=== PATIENT | female | born 1980 ===

== ENCOUNTER 2016-12-14 13:42 | Emergency (ER) | payer OTHER ==
[2016-12-14 13:49] VITALS: BMI 30.5
[2016-12-14 13:50] VITALS: BP 139/86; PULSE 77; RESP 18; TEMP 98.5; O2SAT 100
--- NOTE | 2016-12-14 16:20 | C.PDOC ---
History Of Present Illness 36 yr old female with PMHx of Lupus, presents to the ER stating since last night she had has chest, upper back, bilateral shoulders and bilateral arm pain. Patient states the pain has been increasing and is unrelated to exercise or rest. Patient reports she has tried multiple doses of Tylenol and Motrin with no relief. Patient states she has not taken medication for her Lupus in 2 years and has stopped seeing the food processor. Patient has multiple prior ER visits for various different pain, reports had a US in October which showed a large ovarian cyst along with prior US which also showed a cyst. Also multiple CAT scan of abdomen in past. Patient currently denies fever, nausea, vomiting, diarrhea, headache, weakness or numbness. Time Seen by Provider: 12/14/16 14:15 Chief Complaint (Nursing): Back Pain History Per: Patient History/Exam Limitations: no limitations Onset/Duration Of Symptoms: Sudden Onset (Last night) Past Medical History Reviewed: Historical Data, Nursing Documentation, Vital Signs Vital Signs: Last Vital Signs Temp 98.5 F 12/14/16 13:49 Pulse 77 12/14/16 13:49 Resp 18 12/14/16 13:49 BP 139/86 12/14/16 13:49 Pulse Ox 100 12/14/16 16:27 - Medical History PMH: Arthritis (rheumatoid), Back Problems, Depression, Gastritis, Gastrointestinal Ulcer, Gall Bladder Disease, Hyperthyroidism, Malignancy (Skin Cancer), Rheumatoid Arthritis Surgical History: Cholecystectomy, Endoscopy (EGD with Closed Biopsy) - [facility] Procedures BILAT ENDOS OCC TUBE NEC (11/28/13) DX ULTRASOUND-DIGESTIVE (03/11/13) EPISIOTOMY (02/14/99) ESOPHAGOGASTRODUODENOSCOPY [EGD] W/CLOSED BIOPSY (11/10/14) INJECT/INFUSE ELECTROLYT (05/23/13) INJECT/INFUSE NEC (05/10/15) INSPECTION OF UPPER INTESTINAL TRACT, ENDO (07/05/15) LAPAROSCOPIC CHOLECYSTECTOMY (05/26/13) NEBULIZER THERAPY (06/26/07) OTH NONOPER CARD AND VASC MEASURE (03/31/14) OTHER ENDOSCOPY OF SM INTEST (03/11/13) OTHER LOCAL DESTRUC SKIN (10/05/14) Family History: States: No Known Family Hx - Social History Hx Tobacco Use: No Hx Alcohol Use: Yes Hx Substance Use: No - Immunization History Hx Tetanus Toxoid Vaccination: Yes (2009) Hx Influenza Vaccination: Yes (2015) Hx Pneumococcal Vaccination: Yes (2013) Review Of Systems Except As Marked, All Systems Reviewed And Found Negative. Constitutional: Negative for: Fever Cardiovascular: Positive for: Chest Pain (Upper chest ) Gastrointestinal: Negative for: Nausea, Vomiting Musculoskeletal: Positive for: Shoulder Pain (Bilateral ), Arm Pain (Bilateral ) , Back Pain Neurological: Negative for: Weakness, Numbness Physical Exam - Physical Exam Appears: Non-toxic, In Acute Distress Skin: Warm, Dry, No Rash Head: Atraumatic, Normacephalic Eye(s): bilateral: Normal Inspection, PERRL, EOMI Oral Mucosa: Moist Neck: Normal, Normal ROM, Supple Chest: Symmetrical, No Tenderness Cardiovascular: Rhythm Regular, No Murmur Respiratory: Normal Breath Sounds, No Rales, No Rhonchi, No Stridor, No Wheezing Extremity: Normal ROM, No Swelling Neurological/Psych: Oriented x3, Normal Speech, Normal Motor ED Course And Treatment O2 Sat by Pulse Oximetry: 100 Progress Note: Prior imagings were reviwed. Patient had a normal US, transvaginal and abdomen last month and prior to that month patient had one CAT scan which showed involuted hemorrhagic ovarian cyst but otherwise unremarkable. [facility] was also reviewed which showed multple prescription of percocet from multiple different providers from December of 2015 to last Rx in October of 2016. Medical Decision Making Medical Decision Making: PLAN: * CXR * EKG * CBC * Troponin Discussed pain medicine with pt including her "Aware" records, as well as results of recent testing Pt then eloped Disposition - Disposition Disposition: ELOPEMENT - ER ONLY Disposition Time: 00:00 Condition: UNKNOWN - Clinical Impression Clinical Impression: Chest pain - Scribe Statement The provider has reviewed the documentation as recorded by the Shielae Marylou Diamond Provider Attestation: All medical record entries made by the Jose Carlos were at my direction and personally dictated by me. I have reviewed the chart and agree that the record accurately reflects my personal performance of the history, physical exam, medical decision making, and the department course for this patient. I have also personally directed, reviewed, and agree with the discharge instructions and disposition.
== END 2016-12-14 14:25 | disposition left against medical advice (07) ==
LOC: SUPCPDRO 13:42 → C.ER 13:42
DX: R07.9 Chest pain, unspecified (principal)

== ENCOUNTER 2017-07-30 09:57 | Inpatient (IN) | payer OTHER ==
[2017-07-30 10:02] VITALS: BMI 30.5
[2017-07-30] MEDS ORDERED: Morphine 4 MG/ML VIAL ONE ×3 (10:11→15:01)
--- NOTE | 2017-07-30 10:54 | C.PDOC ---
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 Patient states she bended her knee inwards, heard a snap and fell to the ground. Patient states the pain is 10/10. Denies LOC, head injury, chest pain, neck pain or back pain. Time Seen by Provider: 07/30/17 10:00 Chief Complaint (Nursing): Lower Extremity Problem/Injury History Per: Patient History/Exam Limitations: no limitations Onset/Duration Of Symptoms: Sudden Onset ([employer]) Past Medical History Reviewed: Historical Data, Nursing Documentation, Vital Signs Vital Signs: Last Vital Signs Temp 98.7 F 07/30/17 10:00 Pulse 70 07/30/17 10:58 Resp 20 07/30/17 10:58 BP 137/85 07/30/17 10:58 Pulse Ox 99 07/30/17 14:55 - Medical History PMH: Arthritis (rheumatoid), Back Problems, Depression, Gastritis, Gastrointestinal Ulcer, Gall Bladder Disease, Hyperthyroidism, Malignancy (Skin Cancer), Rheumatoid Arthritis Surgical History: Cholecystectomy, Endoscopy (EGD with Closed Biopsy) - [facility] Procedures BILAT ENDOS OCC TUBE NEC (11/28/13) DX ULTRASOUND-DIGESTIVE (03/11/13) EPISIOTOMY (02/14/99) ESOPHAGOGASTRODUODENOSCOPY [EGD] W/CLOSED BIOPSY (11/10/14) INJECT/INFUSE ELECTROLYT (05/23/13) INJECT/INFUSE NEC (05/10/15) INSPECTION OF UPPER INTESTINAL TRACT, ENDO (07/05/15) LAPAROSCOPIC CHOLECYSTECTOMY (05/26/13) NEBULIZER THERAPY (06/26/07) OTH NONOPER CARD AND VASC MEASURE (03/31/14) OTHER ENDOSCOPY OF SM INTEST (03/11/13) OTHER LOCAL DESTRUC SKIN (10/05/14) Family History: States: No Known Family Hx - Social History Hx Tobacco Use: No Hx Alcohol Use: Yes Hx Substance Use: No - Immunization History Hx Tetanus Toxoid Vaccination: Yes (2009) Hx Influenza Vaccination: Yes (2015) Hx Pneumococcal Vaccination: Yes (2013) Review Of Systems Except As Marked, All Systems Reviewed And Found Negative. Cardiovascular: Negative for: Chest Pain Musculoskeletal: Positive for: Other ((+) Right knee injury and pain.). Negative for: Neck Pain, Back Pain Physical Exam - Physical Exam Appears: Non-toxic, In Acute Distress (Painful distress), Other ((+) Tearful.) Skin: Warm, Dry Head: Atraumatic, Normacephalic Eye(s): bilateral: Normal Inspection, PERRL, EOMI Oral Mucosa: Moist Neck: Normal, Normal ROM, Supple Chest: Symmetrical, No Tenderness Cardiovascular: Rhythm Regular, No Murmur Respiratory: Normal Breath Sounds, No Rales, No Rhonchi, No Stridor, No Wheezing Extremity: No Calf Tenderness, Other (Right Knee - Edema. Clicking sensation to the lateral aspect of the knee.) Neurological/Psych: Oriented x3, Normal Speech, Normal Motor ED Course And Treatment - Laboratory Results Result Diagrams: 07/30/17 15:27 07/30/17 15:27 O2 Sat by Pulse Oximetry: 99 (RA) Pulse Ox Interpretation: Normal - Other Rad X-Ray - Right Knee X-Ray: Viewed By Me, Read By Radiologist Interpretation: PROCEDURE: Right Knee Radiographs. One. HISTORY: fall, surgical knee. COMPARISON: None. FINDINGS: BONES: There is a complete nondisplaced fracture of the lateral tibial plateau with depression of the plateau. There is no other acute fracture identified. There is evidence of old ACL repair with a tunnel through the lateral femur and medial tibia about the knee. JOINTS: No evidence of arthritis. JOINT EFFUSION: There is a hemarthrosis present. OTHER FINDINGS: None. IMPRESSION: Acute depressed complete nondisplaced fracture of the lateral tibial plateau with associated hemarthrosis. - CT Scan/US CT - Lower Extremity Other Rad Studies (CT/US): Read By Radiologist, Radiology Report Reviewed CT/US Interpretation: CT right knee. History: Tibial plateau fracture. Comparison: None available. Technique: Multiple contiguous axial images were performed through the right knee without the use of intravenous contrast. Subsequently, sagittal and coronal reformatted images were obtained. This CT exam was performed using one or more of the following dose reduction techniques : Automated exposure control, adjustment of the mA and/or kV according to patient size, and/or use of iterative reconstruction technique. Findings: Complex comminuted intra-articular fracture deformity seen through the lateral proximal tibial plateau with approximately 1.1 centimeter articular surface depression of the proximal tibia. Fracture extension to the lateral and posterior cortices. Patient status post anterior cruciate ligament graft repair. Lucency noted adjacent to the proximal tibial screw which may represent some screw loosening. Large suprapatellar joint effusion with hemarthrosis. Some heterogeneity and a suggestion of a fat containing foci seen lateral to the proximal tibia. Impression: Complex comminuted intra-articular fracture deformity seen through the lateral proximal tibial plateau with approximately 1.1 centimeter articular surface depression of the proximal tibia. Fracture extension to the lateral and posterior cortices. Patient status post anterior cruciate ligament graft repair. Lucency noted adjacent to the proximal tibial screw which may represent some screw loosening. Large suprapatellar joint effusion with hemarthrosis. Some heterogeneity and a suggestion of a fat containing foci seen lateral to the proximal tibia. Medical Decision Making Medical Decision Making: PLAN: * CT - Lower Extremity * X-Ray - Right Knee * Morphine IM * Spoke with dr. Hernandez, pending call back. Spoke with Dr Hernandez, agreed to admit to medicine, will operate on 08/01. Disposition Discussed With : Kelsea Garcias Counseled Patient/Family Regarding: Studies Performed, Diagnosis, Need For Followup - Disposition Disposition: HOSPITALIZED Disposition Time: 15:59 Condition: IMPROVED Forms: [employer] (Austrian) - Clinical Impression Clinical Impression: Tibial plateau fracture, right - Scribe Statement The provider has reviewed the documentation as recorded by the Jose Carlos Diamond Provider Attestation: All medical record entries made by the Jose Carlos were at my direction and personally dictated by me. I have reviewed the chart and agree that the record accurately reflects my personal performance of the history, physical exam, medical decision making, and the department course for this patient. I have also personally directed, reviewed, and agree with the discharge instructions and disposition. Decision To Admit - Pt Status Changed To: Hospital Disposition Of: Inpatient - Admit Certification Admit to Inpatient:: After my assessment, the patient will require hospitalization for at least two midnights. This is because of the severity of symptoms shown, intensity of services needed, and/or the medical risk in this patient being treated as an outpatient. - InPatient: Physician Admission Certification: I certify that this patient requires 2 or more midnights of care for the following reason:: needs surgery and pain management - . Bed Request Type: Regular Patient Diagnosis: Tibial plateau fracture, right
--- NOTE | 2017-07-30 13:09 | CT ---
CT right knee History: Tibial plateau fracture. Comparison: None available. Technique: Multiple contiguous axial images were performed through the right knee without the use of intravenous contrast. Subsequently, sagittal and coronal reformatted images were obtained. This CT exam was performed using one or more of the following dose reduction techniques: Automated exposure control, adjustment of the mA and/or kV according to patient size, and/or use of iterative reconstruction technique. Findings: Complex comminuted intra-articular fracture deformity seen through the lateral proximal tibial plateau with approximately 1.1 centimeter articular surface depression of the proximal tibia. Fracture extension to the lateral and posterior cortices. Patient status post anterior cruciate ligament graft repair. Lucency noted adjacent to the proximal tibial screw which may represent some screw loosening. Large suprapatellar joint effusion with hemarthrosis. Some heterogeneity and a suggestion of a fat containing foci seen lateral to the proximal tibia. Impression: Complex comminuted intra-articular fracture deformity seen through the lateral proximal tibial plateau with approximately 1.1 centimeter articular surface depression of the proximal tibia. Fracture extension to the lateral and posterior cortices. Patient status post anterior cruciate ligament graft repair. Lucency noted adjacent to the proximal tibial screw which may represent some screw loosening. Large suprapatellar joint effusion with hemarthrosis. Some heterogeneity and a suggestion of a fat containing foci seen lateral to the proximal tibia.
--- NOTE | 2017-07-30 13:28 | CP.PCM.PN ---
Subjective - Date & Time of Evaluation Date of Evaluation: 07/30/17 Time of Evaluation: 09:35 - Subjective Subjective: Rapid Response called at 9:32. 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 Patient has had surgery on this knee recently by a Dr. Andrews, orthopedic surgeon. Patient was screaming in pain when I arrived in the [employer] [facility]. She was sitting on the floor unable to extend her leg. Both pedal pulses were appreciated. Patient's foot was warm and her sensation intact. Patient said "I know it is broken I can feel it." Patient was given a shot of Toradol 30gm IM once in the [facility] and was then brought to the ER. Objective - Vital Signs/Intake and Output Vital Signs (last 24 hours): Temp Pulse Resp BP Pulse Ox 98.7 F 70 20 137/85 99 07/30/17 10:00 07/30/17 10:58 07/30/17 10:58 07/30/17 10:58 07/30/17 12:00
[2017-07-30 15:31] LABS: BASO % 0.4 % (0.0-2.0); EOS # 0.2 K/uL (0.0-0.7); EOS % 1.8 % (0.0-4.0); HEMATOCRIT 37.5 % (34.0-47.0); LYMPH # 2.3 K/uL (1.0-4.3); LYMPH % 24.4 % (20.0-40.0); MEAN CORPUSCULAR HEMOGLOBIN 28.6 pg (27.0-31.0); MEAN CORPUSCULAR HGB CONC 33.3 g/dL (33.0-37.0); MEAN PLATELET VOLUME 8.4 fL (7.2-11.7); MONO # 0.7 K/uL (0.0-0.8); MONO % 7.1 % (0.0-10.0); NRBC % 0.1 % (0.0-2.0); WHITE BLOOD COUNT 9.5 K/uL (4.8-10.8)
[2017-07-30 15:46] LABS: CHLORIDE 101 mmol/L (98-107)
[2017-07-30 15:47] LABS: POTASSIUM 3.7 mmol/L (3.6-5.2); SODIUM 134 mmol/L (132-148)
[2017-07-30 15:49] LABS: GFR AFRICAN-AMERICAN > 60
[2017-07-30 17:22] LABS: ALB/GLOB RATIO 1.4 (1.0-2.1); ALKALINE PHOSPHATASE 68 U/L (38-126); ALT/SGPT 37 U/L (9-52); AST/SGOT 31 U/L (14-36); BILIRUBIN,TOTAL 1.1 mg/dL (0.2-1.3); BLOOD UREA NITROGEN 12 mg/dL (7-17); CALCIUM 8.7 mg/dl (8.6-10.4); CARBON DIOXIDE 23 mmol/L (22-30); GLUCOSE,RANDOM 81 mg/dL (65-105); TOTAL PROTEIN 7.6 g/dL (6.3-8.3)
--- NOTE | 2017-07-30 18:03 | CP.PCM.HP ---
<Yuridia Pinon - Last Filed: 07/30/17 18:41> History of Present Illness - History of Present Illness History of Present Illness: CC: " My knee hurts!" HPI: Patient is a 37 year old female with PMHx of SLE, pericarditis in 2013, colloid brain cyst, L4-5 herniated disc, L5-S1 fissure tear in disc, hyperthyroidism, eczema, rheumatoid arthritis and gastritis with ulcer presenting for severe right knee pain. 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 Patient has had surgery on this knee 3 times , most recently by a Dr. Andrews, orthopedic surgeon. Patient says her pain was a 20/10 on arrival to ER. She says the Toradol did not help at all. Patient says that now her pain is an 8/10. She describes it as a cramping in her thigh and a throbbing, aching, grinding pain in her right knee. Patient says the pain radiates down to her ankle. Patient reports reproducible substernal chest pressure on arrival that resolved with a burp. Patient denies associated SOB or diaphoresis. Patient also reports having a cold since Sunday. Her PMD, Dr. Garcias, prescribed her an antibiotic but told her to only take it if it doesn' t get any better in the next few days. Patient also reports straining with her bowel movements ever since starting Vicodin for back pain. Patient denies fever , chills, abdominal pain, nausea, vomiting, diarrhea, recent travel, sick contacts. Patient reports getting nausea and vomiting from dilaudid. 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 absent: Abdominal Pain, Diarrhea, Nausea, Vomiting - Genitourinary Genitourinary: absent: Dysuria - Musculoskeletal Additional comments: severe right knee pain - Integumentary Integumentary: absent: Bleeding Lesions, Erythema - Neurological Neurological: absent: Dizziness, Headaches - Psychiatric Psychiatric: absent: Anxiety, Depression - Endocrine Endocrine: absent: Fatigue - Hematologic/Lymphatic Hematologic: absent: Easy Bleeding, Easy Bruising Past Patient History - Infectious Disease Hx of Infectious Diseases: None - Tetanus Immunizations Tetanus Immunization: Unknown - Past Medical History & Family History Past Medical History?: Yes Pertinent Family History: Maternal grandmother - pacemaker; maternal grandfather - HTN, RA, stomach CA; Mother - SLE, maternal uncles - DM, paternal grandmother - DM - Past Social History Smoking Status: Never Smoked 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 Alcohol: Occasional Drugs: Denies Home Situation {Lives}: With Family - CARDIAC Hx Cardiac Disorders: Yes Other/Comment: pericarditis secondary to lupus - PULMONARY Hx Respiratory Disorders: No - NEUROLOGICAL Hx Neurological Disorder: Yes Hx Dizziness: Yes Other/Comment: COLLOID CYST BRAIN - HEENT Hx HEENT Problems: No - RENAL Hx Chronic Kidney Disease: No - ENDOCRINE/METABOLIC Hx Hyperthyroidism: Yes - HEMATOLOGICAL/ONCOLOGICAL Hx Blood Disorders: No Hx AIDS: No - INTEGUMENTARY Hx Dermatological Problems: Yes Hx Eczema: Yes - MUSCULOSKELETAL/RHEUMATOLOGICAL Hx Arthritis: Yes (rheumatoid) Hx Rheumatoid Arthritis: Yes - GASTROINTESTINAL Hx Gall Bladder Disease: Yes Hx Gastritis: Yes - GENITOURINARY/GYNECOLOGICAL Hx Genitourinary Disorders: Yes Hx Urinary Tract Infection: Yes - PSYCHIATRIC Hx Depression: Yes Hx Substance Use: No - SURGICAL HISTORY Hx Cholecystectomy: Yes - ANESTHESIA Hx Anesthesia Reactions: (Vomiting) Meds Allergies/Adverse Reactions: Allergies Allergy/AdvReac Type Severity Reaction Status Date / Time latex Allergy RASH Verified 07/30/17 10:01 tramadol Allergy URTICARIA Verified 07/30/17 10:01 Physical Exam - Constitutional Appears: Non-toxic, No Acute Distress - Head Exam Head Exam: NORMAL INSPECTION - Eye Exam Eye Exam: EOMI - ENT Exam ENT Exam: Mucous Membranes Moist - Respiratory Exam Respiratory Exam: Clear to Auscultation Bilateral, NORMAL BREATHING PATTERN. absent: Rales, Rhonchi, Wheezes - Cardiovascular Exam Cardiovascular Exam: REGULAR RHYTHM, +S1, +S2. absent: Gallop, Irregular Rhythm , Rubs, Systolic Murmur - GI/Abdominal Exam GI & Abdominal Exam: Normal Bowel Sounds, Soft. absent: Distended, Firm, Guarding, Rigid, Tenderness - Extremities Exam Extremities exam: Positive for: pedal pulses present. Negative for: pedal edema Additional comments: right knee tender with palpable suprapatellar effusion unable to extend right knee patient can dorsilfex and plantar flex her right and left ankles - Neurological Exam Neurological exam: Alert, Oriented x3 - Psychiatric Exam Psychiatric exam: Normal Affect, Normal Mood - Skin Skin Exam: Dry, Normal Color Results - Vital Signs Recent Vital Signs: Last Vital Signs Temp 99 F 07/30/17 17:11 Pulse 74 07/30/17 17:11 Resp 20 07/30/17 17:11 BP 126/77 07/30/17 17:11 Pulse Ox 100 07/30/17 17:11 - Labs Result Diagrams: 07/30/17 15:27 07/30/17 15:27 Labs: Laboratory Results - last 24 hr 07/30/17 07/30/17 15:27 15:27 WBC 9.5 RBC 4.35 Hgb 12.5 Hct 37.5 MCV 86.0 MCH 28.6 MCHC 33.3 RDW 13.0 Plt Count 237 MPV 8.4 Neut % (Auto) 66.3 Lymph % (Auto) 24.4 [place] % (Auto) 7.1 Eos % (Auto) 1.8 Baso % (Auto) 0.4 Neut # 6.3 Lymph # 2.3 [place] # 0.7 Eos # 0.2 Baso # 0.0 Sodium 134 Potassium 3.7 Chloride 101 Carbon Dioxide 23 Anion Gap 14 BUN 12 Creatinine 0.6 L Est GFR ( Amer) > 60 Est GFR (Non-Af Amer) > 60 Random Glucose 81 Calcium 8.7 Total Bilirubin 1.1 AST 31 ALT 37 Alkaline Phosphatase 68 Total Protein 7.6 Albumin 4.4 Globulin 3.2 Albumin/Globulin Ratio 1.4 Assessment & Plan - Assessment and Plan (Free Text) Assessment: Right Tibial Fracture Right Knee X Ray 07/30/17 - acute depressed complete nondisplaced fracture of the lateral tibial plateau with associated hemarthrosis (please see full report) Right Knee CT 07/30/17 - complex comminuted intra-articular fracture deformity seen through the lateral proximal tibial plateau with approximately 1.1cm articular surface depression of the proximal tibia. Fracture extension to the lateral and posterior cortices. Patient status post ACL graft repair. Lucency noted adjacent to the proximal tibial screw which may represent some screw loosening. Large suprapatellar joint effusion with hemarthrosis. Some heterogeneity and a suggestion of a fat containing foci seen lateral to proximal tibia (please see full report) Ortho consult - Dr. Hernandez - help appreciated Patient NPO starting Midnight between 07/31 to 08/01 for surgery on 08/01/17 Morphine 4mg IVP Q4H PRN severe pain Zofran 4mg IVP Q6 PRN nausea/vomiting Constipation Colace 100mg PO BID History of Herniated discs Continue home vicodin 5-300mg History of hyperthyroidism Last TSH on 06/22/17 was 0.47 - WNL History of SLE Patient used to take plaquinil but it gave her migraines and tinnitus She and her doctor decided to stop it History of brain colloid cyst First diagnosed 2010 Patient follows up outpatient with Dr. Max and gets an MRI every 3 years History of gastritis Protonix 40mg PO daily Prophylaxis Heparin 5000U SC Q8 Protonix 40mg PO daily <Helder Krueger - Last Filed: 07/31/17 09:05> Results - Vital Signs Recent Vital Signs: Last Vital Signs Temp 98.4 F 07/31/17 07:00 Pulse 70 07/31/17 07:00 Resp 20 07/31/17 07:00 BP 128/82 07/31/17 07:00 Pulse Ox 99 07/31/17 07:00 - Labs Result Diagrams: 07/31/17 07:21 07/31/17 07:21 Labs: Laboratory Results - last 24 hr 07/30/17 07/30/17 07/31/17 15:27 15:27 07:21 WBC 9.5 5.7 RBC 4.35 4.03 Hgb 12.5 11.9 Hct 37.5 34.8 MCV 86.0 86.3 MCH 28.6 29.6 MCHC 33.3 34.3 RDW 13.0 12.9 Plt Count 237 213 MPV 8.4 8.3 Neut % (Auto) 66.3 52.9 Lymph % (Auto) 24.4 34.0 [place] % (Auto) 7.1 9.3 Eos % (Auto) 1.8 3.3 Baso % (Auto) 0.4 0.5 Neut # 6.3 3.0 Lymph # 2.3 1.9 [place] # 0.7 0.5 Eos # 0.2 0.2 Baso # 0.0 0.0 Sodium 134 Potassium 3.7 Chloride 101 Carbon Dioxide 23 Anion Gap 14 BUN 12 Creatinine 0.6 L Est GFR ( Amer) > 60 Est GFR (Non-Af Amer) > 60 Random Glucose 81 Calcium 8.7 Total Bilirubin 1.1 AST 31 ALT 37 Alkaline Phosphatase 68 Total Protein 7.6 Albumin 4.4 Globulin 3.2 Albumin/Globulin Ratio 1.4 07/31/17 07:21 WBC RBC Hgb Hct MCV MCH MCHC RDW Plt Count MPV Neut % (Auto) Lymph % (Auto) [place] % (Auto) Eos % (Auto) Baso % (Auto) Neut # Lymph # [place] # Eos # Baso # Sodium 133 Potassium 3.6 Chloride 99 Carbon Dioxide 25 Anion Gap 13 BUN 12 Creatinine 0.6 L Est GFR ( Amer) > 60 Est GFR (Non-Af Amer) > 60 Random Glucose 77 Calcium 8.2 L Total Bilirubin 1.5 H AST 23 ALT 32 Alkaline Phosphatase 62 Total Protein 6.6 Albumin 3.9 Globulin 2.7 Albumin/Globulin Ratio 1.5 Attending/Attestation - Attestation I have personally seen and examined this patient.: Yes I have fully participated in the care of the patient.: Yes I have reviewed all pertinent clinical information: Yes Notes (Text): 07/31/17 09:00 Medical Attending: Patient was seen and examined by me in the ER Fast track. Agree with the above note by the medical manager. 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 Initially it was very painful, now better controlled with morphine and we also added on percocet as well. She explains to us that she's had several procedures to that side as well. By the time I saw patient in the ER fast track she already was in a soft splint, bonifacio wrap There is a history of hyperthyroid - a recent TSH was ok, also history of lupus that has been stable. Will need CXRAY, EKG. Coags, Type screen thank you Helder Krueger
[2017-07-30] MEDS: Pantoprazole 40 mg EC Tab PO SCH (18:29)
[2017-07-30] MEDS: Hydrocodone/Acetaminophen 5 mg /300 mg Tab PO PRN (18:36)
[2017-07-31] MEDS: Hydrocodone/Acetaminophen 5 mg /300 mg Tab PO PRN ×4 (02:03→22:40)
[2017-07-31 07:47] LABS: BASO % 0.5 % (0.0-2.0); EOS # 0.2 K/uL (0.0-0.7); EOS % 3.3 % (0.0-4.0); HEMATOCRIT 34.8 % (34.0-47.0); LYMPH # 1.9 K/uL (1.0-4.3); MEAN CELL VOLUME 86.3 fL (81.0-99.0); MEAN CORPUSCULAR HEMOGLOBIN 29.6 pg (27.0-31.0); MEAN CORPUSCULAR HGB CONC 34.3 g/dL (33.0-37.0); MEAN PLATELET VOLUME 8.3 fL (7.2-11.7); MONO # 0.5 K/uL (0.0-0.8); MONO % 9.3 % (0.0-10.0); NRBC % 0.2 % (0.0-2.0); RED CELL DISTRIBUTION WIDTH 12.9 % (11.5-14.5); WHITE BLOOD COUNT 5.7 K/uL (4.8-10.8)
[2017-07-31 07:57] LABS: CHLORIDE 99 mmol/L (98-107); POTASSIUM 3.6 mmol/L (3.6-5.2); SODIUM 133 mmol/L (132-148)
[2017-07-31 07:59] LABS: ALB/GLOB RATIO 1.5 (1.0-2.1); ALKALINE PHOSPHATASE 62 U/L (38-126); AST/SGOT 23 U/L (14-36); BILIRUBIN,TOTAL 1.5 mg/dL (0.2-1.3); CARBON DIOXIDE 25 mmol/L (22-30); GFR AFRICAN-AMERICAN > 60; TOTAL PROTEIN 6.6 g/dL (6.3-8.3)
[2017-07-31 08:00] LABS: ALT/SGPT 32 U/L (9-52); BLOOD UREA NITROGEN 12 mg/dL (7-17); CALCIUM 8.2 mg/dl (8.6-10.4); GLUCOSE,RANDOM 77 mg/dL (65-105)
[2017-07-31] MEDS: Pantoprazole 40 mg EC Tab PO SCH (09:25)
[2017-07-31] MEDS: HYDROmorphone 1 mg/ml ISec IVP PRN ×2 (12:01→16:33)
--- NOTE | 2017-07-31 14:02 | RAD ---
HISTORY: medical pre-op clearance COMPARISON: 10/01/2014 FINDINGS: LUNGS: No active pulmonary disease. PLEURA: No significant pleural effusion identified, no pneumothorax apparent. CARDIOVASCULAR: Normal. OSSEOUS STRUCTURES: No significant abnormalities. VISUALIZED UPPER ABDOMEN: Normal. OTHER FINDINGS: None. IMPRESSION: No active disease. No significant interval change compared to the prior examination(s).
[2017-07-31 14:34] LABS: INR 1.1
--- NOTE | 2017-07-31 16:00 | CP.PCM.PN ---
<Yuridia Sousa - Last Filed: 07/31/17 15:56> Subjective - Date & Time of Evaluation Date of Evaluation: 07/31/17 Time of Evaluation: 09:15 - Subjective Subjective: Medicine note for Dr. Krueger Patient seen and examined at bedside. Patient Resting in bed complaining of RLE pain. Patient says she is having pain in the lateral aspect of her calf down to her ankle and her foot feels cold to her. Patient feels that the morphine is not controlling her pain and is requesting dilaudid instead with zofran to prevent nausea. Patient says she is also constipated and has not had a BM in a couple days. Patient says her right shoulder is feeling sore and she is also having epigastric pain radiating up into her chest. Patient says this pain is relieved by sitting up or turning on her side. She admits to a history of GERD. She denies fever, chills, SOB, n/v/d. Objective - Vital Signs/Intake and Output Vital Signs (last 24 hours): Temp Pulse Resp BP Pulse Ox 98.2 F 71 20 111/68 97 07/31/17 15:10 07/31/17 15:10 07/31/17 15:10 07/31/17 15:10 07/31/17 15:10 Intake and Output: 07/31/17 07/31/17 06:59 18:59 Intake Total 500 Balance 500 - Medications Medications: Current Medications Acetaminophen/Hydrocodone Bitart (Vicodin 5 Mg-300 Mg) 1 tab PO Q4H PRN PRN Reason: Pain, moderate (4-7) Stop: 08/06/17 17:37 Last Admin: 07/31/17 14:57 Dose: 1 tab Docusate Sodium (Colace) 100 mg PO BID [facility] Last Admin: 07/31/17 09:25 Dose: 100 mg Heparin Sodium (Porcine) (Heparin) 5,000 units SC Q8 [facility] Last Admin: 07/31/17 14:06 Dose: 5,000 units Hydromorphone HCl (Dilaudid) 1 mg IVP Q4H PRN PRN Reason: Pain, severe (8-10) Last Admin: 07/31/17 12:01 Dose: 1 mg Ondansetron HCl (Zofran Inj) 4 mg IVP Q6 PRN PRN Reason: Nausea/Vomiting Last Admin: 07/31/17 12:01 Dose: 4 mg Pantoprazole Sodium (Protonix Ec Tab) 40 mg PO DAILY [facility] Last Admin: 07/31/17 09:25 Dose: 40 mg - Labs Labs: 07/31/17 07:21 07/31/17 07:21 PT 12.8 SECONDS (9.7-12.2) H 07/31/17 14:09 INR 1.1 07/31/17 14:09 - Additional Findings Additional findings: - Constitutional Appears: Non-toxic, No Acute Distress - Head Exam Head Exam: NORMAL INSPECTION - Eye Exam Eye Exam: EOMI - ENT Exam ENT Exam: Mucous Membranes Moist - Respiratory Exam Respiratory Exam: Clear to Auscultation Bilateral, NORMAL BREATHING PATTERN. absent: Rales, Rhonchi, Wheezes - Cardiovascular Exam Cardiovascular Exam: REGULAR RHYTHM, +S1, +S2. absent: Gallop, Irregular Rhythm , Rubs, Systolic Murmur - GI/Abdominal Exam GI & Abdominal Exam: Normal Bowel Sounds, Soft. absent: Distended, Firm, Guarding, Rigid, Tenderness - Extremities Exam Extremities exam: Positive for: pedal pulses present. Negative for: pedal edema Additional comments: Full ROM in toes right LE in MIRIAM bandage and brace - Neurological Exam Neurological exam: Alert, Oriented x3 Additional comments: no sensory deficit in toes - Psychiatric Exam Psychiatric exam: Normal Affect, Normal Mood - Skin Skin Exam: Dry, Normal Color Assessment and Plan - Assessment and Plan (Free Text) Plan: Right Tibial Fracture Right Knee X Ray 07/30/17 - acute depressed complete nondisplaced fracture of the lateral tibial plateau with associated hemarthrosis (please see full report) Right Knee CT 07/30/17 - complex comminuted intra-articular fracture deformity seen through the lateral proximal tibial plateau with approximately 1.1cm articular surface depression of the proximal tibia. Fracture extension to the lateral and posterior cortices. Patient status post ACL graft repair. Lucency noted adjacent to the proximal tibial screw which may represent some screw loosening. Large suprapatellar joint effusion with hemarthrosis. Some heterogeneity and a suggestion of a fat containing foci seen lateral to proximal tibia (please see full report) Ortho consult - Dr. Hernandez - help appreciated * Patient NPO starting Midnight for surgery on 08/01/17 * INR 1.1 * CXR: No active disease. No significant interval change compared to the prior examination(s). * F/U EKG * Blood type: A+ * Ab screen: negative Dilaudid 1 mg Q4H PRN severe pain Discontinued Morphine 4mg IVP Q4H PRN severe pain Zofran 4mg IVP Q6 PRN nausea/vomiting Constipation Colace 100mg PO BID History of Herniated discs Continue home vicodin 5-300mg History of hyperthyroidism Last TSH on 06/22/17 was 0.47 - WNL History of SLE Patient used to take plaquinil but it gave her migraines and tinnitus She and her doctor decided to stop it History of brain colloid cyst First diagnosed 2010 Patient follows up outpatient with Dr. Max and gets an MRI every 3 years History of gastritis Protonix 40mg PO daily Prophylaxis Heparin 5000U SC Q8 Protonix 40mg PO daily <Helder Krueger - Last Filed: 07/31/17 16:16> Objective - Vital Signs/Intake and Output Vital Signs (last 24 hours): Temp Pulse Resp BP Pulse Ox 98.2 F 71 20 111/68 97 07/31/17 15:10 07/31/17 15:10 07/31/17 15:10 07/31/17 15:10 07/31/17 15:10 Intake and Output: 07/31/17 07/31/17 06:59 18:59 Intake Total 500 Balance 500 - Medications Medications: Current Medications Acetaminophen/Hydrocodone Bitart (Vicodin 5 Mg-300 Mg) 1 tab PO Q4H PRN PRN Reason: Pain, moderate (4-7) Stop: 08/06/17 17:37 Last Admin: 07/31/17 14:57 Dose: 1 tab Docusate Sodium (Colace) 100 mg PO BID [facility] Last Admin: 07/31/17 09:25 Dose: 100 mg Heparin Sodium (Porcine) (Heparin) 5,000 units SC Q8 [facility] Last Admin: 07/31/17 14:06 Dose: 5,000 units Hydromorphone HCl (Dilaudid) 1 mg IVP Q4H PRN PRN Reason: Pain, severe (8-10) Last Admin: 07/31/17 12:01 Dose: 1 mg Ondansetron HCl (Zofran Inj) 4 mg IVP Q6 PRN PRN Reason: Nausea/Vomiting Last Admin: 07/31/17 12:01 Dose: 4 mg Pantoprazole Sodium (Protonix Ec Tab) 40 mg PO DAILY [facility] Last Admin: 07/31/17 09:25 Dose: 40 mg - Labs Labs: 07/31/17 07:21 07/31/17 07:21 PT 12.8 SECONDS (9.7-12.2) H 07/31/17 14:09 INR 1.1 07/31/17 14:09 Attending/Attestation - Attestation I have personally seen and examined this patient.: Yes I have fully participated in the care of the patient.: Yes I have reviewed all pertinent clinical information, including history, physical exam and plan: Yes Notes (Text): 07/31/17 16:16 Medical attending: Patient was seen and examined by me, agrees the above note by medical pathologist. The IV morphine that the patient was receiving was not enough and so was changed over to IV Dilaudid. We continue with oral Vicodin as well. The was able to move her toes, she denied any numbness or paresthesias. On exam she was able to plantar and dorsiflex her foot. The patient will be nothing by mouth after midnight, for anticipation of surgery of the right tibial fracture thank you Helder Krueger
[2017-08-01] MEDS: HYDROmorphone 1 mg/ml ISec IVP PRN ×4 (00:30→20:09)
[2017-08-01 06:58] LABS: BASO % 0.3 % (0.0-2.0); EOS # 0.2 K/uL (0.0-0.7); EOS % 3.3 % (0.0-4.0); HEMATOCRIT 35.1 % (34.0-47.0); LYMPH # 2.2 K/uL (1.0-4.3); LYMPH % 32.1 % (20.0-40.0); MEAN CELL VOLUME 85.4 fL (81.0-99.0); MEAN CORPUSCULAR HEMOGLOBIN 29.5 pg (27.0-31.0); MEAN CORPUSCULAR HGB CONC 34.6 g/dL (33.0-37.0); MEAN PLATELET VOLUME 8.4 fL (7.2-11.7); MONO # 0.6 K/uL (0.0-0.8); MONO % 8.5 % (0.0-10.0); RED CELL DISTRIBUTION WIDTH 12.6 % (11.5-14.5); WHITE BLOOD COUNT 6.8 K/uL (4.8-10.8)
[2017-08-01 07:22] LABS: INR 1.1
[2017-08-01 07:40] LABS: ALB/GLOB RATIO 1.3 (1.0-2.1); ALKALINE PHOSPHATASE 70 U/L (38-126); ALT/SGPT 34 U/L (9-52); AST/SGOT 26 U/L (14-36); BILIRUBIN,TOTAL 1.2 mg/dL (0.2-1.3); BLOOD UREA NITROGEN 10 mg/dL (7-17); CALCIUM 8.6 mg/dl (8.6-10.4); CARBON DIOXIDE 25 mmol/L (22-30); CHLORIDE 99 mmol/L (98-107); GFR AFRICAN-AMERICAN > 60; GLUCOSE,RANDOM 84 mg/dL (65-105); MAGNESIUM 1.8 mg/dL (1.6-2.3); PHOSPHOROUS 3.9 mg/dL (2.5-4.5); POTASSIUM 3.8 mmol/L (3.6-5.2); SODIUM 134 mmol/L (132-148)
[2017-08-01 08:28] LABS: RBC URINE 4 /hpf (0-3); URINE BILIRUBIN NEGATIVE (NEGATIVE); URINE BLOOD 1+ (NEGATIVE); URINE COLOR Yellow (YELLOW); URINE GLUCOSE (UA) NORMAL (Normal); URINE KETONE NEGATIVE (NEGATIVE); URINE LEUKOCYTE ESTERASE TRACE Leu/uL (Negative); URINE PROTEIN NEGATIVE (NEGATIVE); URINE UROBILINOGEN NORMAL mg/dL (0.2-1.0); WBC URINE 5 /hpf (0-5)
[2017-08-01] MEDS: Pantoprazole 40 mg EC Tab PO SCH (09:34)
[2017-08-01] MEDS ORDERED: Influenza Vaccine 60 mcg/0.5 mL SYR (4YR UP) IM ONE (10:00)
--- NOTE | 2017-08-01 10:07 | CP.PCM.PN ---
Subjective - Date & Time of Evaluation Date of Evaluation: 08/01/17 Time of Evaluation: 07:20 - Subjective Subjective: Medicine note for Dr. Krueger Patient seen and examined at bedside. Patient resting comfortably in bed but saying she is nervous about her upcoming surgery since Dr. Hernandez told her it may need to be 2 separate surgeries. Patient says her pain is better controlled today than it was yesterday. She admits to not having a BM for 2 days and is worried she may have a hard time using the bathroom post op. Patient is also requesting female nurses only to assist her with toileting. Patient is still complaining of some gastric reflux and RLE pain but othrewise denies fever, chills, SOB, n/v/d. Objective - Vital Signs/Intake and Output Vital Signs (last 24 hours): Temp Pulse Resp BP Pulse Ox 98.4 F 100 H 18 130/70 98 08/01/17 07:40 08/01/17 07:40 08/01/17 07:40 08/01/17 07:40 08/01/17 07:40 - Medications Medications: Current Medications Acetaminophen/Hydrocodone Bitart (Vicodin 5 Mg-300 Mg) 1 tab PO Q4H PRN PRN Reason: Pain, moderate (4-7) Stop: 08/06/17 17:37 Last Admin: 07/31/17 22:40 Dose: 1 tab Docusate Sodium (Colace) 100 mg PO BID [facility] Last Admin: 08/01/17 09:33 Dose: Not Given Heparin Sodium (Porcine) (Heparin) 5,000 units SC Q8 [facility] Last Admin: 07/31/17 21:54 Dose: 5,000 units Hydromorphone HCl (Dilaudid) 1 mg IVP Q4H PRN PRN Reason: Pain, severe (8-10) Last Admin: 08/01/17 09:26 Dose: 1 mg Ondansetron HCl (Zofran Inj) 4 mg IVP Q6 PRN PRN Reason: Nausea/Vomiting Last Admin: 08/01/17 05:34 Dose: 4 mg Pantoprazole Sodium (Protonix Ec Tab) 40 mg PO DAILY [facility] Last Admin: 08/01/17 09:34 Dose: Not Given - Labs Labs: 08/01/17 06:47 08/01/17 06:47 PT 12.6 SECONDS (9.7-12.2) H 08/01/17 06:47 INR 1.1 08/01/17 06:47 APTT 32 SECONDS (21-34) 08/01/17 06:47 - Additional Findings Additional findings: - Constitutional Appears: Non-toxic, No Acute Distress - Head Exam Head Exam: NORMAL INSPECTION - Eye Exam Eye Exam: EOMI - ENT Exam ENT Exam: Mucous Membranes Moist - Respiratory Exam Respiratory Exam: Clear to Auscultation Bilateral, NORMAL BREATHING PATTERN. absent: Rales, Rhonchi, Wheezes - Cardiovascular Exam Cardiovascular Exam: REGULAR RHYTHM, +S1, +S2. absent: Gallop, Irregular Rhythm , Rubs, Systolic Murmur - GI/Abdominal Exam GI & Abdominal Exam: Normal Bowel Sounds, Soft. absent: Distended, Firm, Guarding, Rigid, Tenderness - Extremities Exam Extremities exam: Positive for: pedal pulses present. Negative for: pedal edema Additional comments: Full ROM in toes right LE in MIRIAM bandage and brace - Neurological Exam Neurological exam: Alert, Oriented x3 Additional comments: no sensory deficit in toes - Psychiatric Exam Psychiatric exam: Normal Affect, Normal Mood - Skin Skin Exam: Dry, Normal Color Assessment and Plan - Assessment and Plan (Free Text) Plan: Right Tibial Fracture Right Knee X Ray 07/30/17 - acute depressed complete nondisplaced fracture of the lateral tibial plateau with associated hemarthrosis (please see full report) Right Knee CT 07/30/17 - complex comminuted intra-articular fracture deformity seen through the lateral proximal tibial plateau with approximately 1.1cm articular surface depression of the proximal tibia. Fracture extension to the lateral and posterior cortices. Patient status post ACL graft repair. Lucency noted adjacent to the proximal tibial screw which may represent some screw loosening. Large suprapatellar joint effusion with hemarthrosis. Some heterogeneity and a suggestion of a fat containing foci seen lateral to proximal tibia (please see full report) Ortho consult - Dr. Hernandez - help appreciated * Surgery for fracture on 08/01/17 * Will need incentive spirometer at bedside post op * INR 1.1 * CXR: No active disease. No significant interval change compared to the prior examination(s) * F/U RLE MRI * Patient may need 2nd surgery for ACL repair * EKG: possible mild LVH, otherwise NSR and WNL * Blood type: A+ * Ab screen: negative Dilaudid 1 mg Q4H PRN severe pain Discontinued Morphine 4mg IVP Q4H PRN severe pain Zofran 4mg IVP Q6 PRN nausea/vomiting Constipation Colace 100mg PO BID History of Herniated discs Continue home vicodin 5-300mg History of hyperthyroidism Last TSH on 06/22/17 was 0.47 - WNL History of SLE Patient used to take plaquinil but it gave her migraines and tinnitus She and her doctor decided to stop it History of brain colloid cyst First diagnosed 2010 Patient follows up outpatient with Dr. Max and gets an MRI every 3 years History of gastritis Protonix 40mg PO daily Prophylaxis Heparin 5000U SC Q8 Protonix 40mg PO daily
[2017-08-01] MEDS ORDERED: Midazolam 2 MG/2 ML VIAL ONE (14:30)
[2017-08-01] MEDS ORDERED: Propofol 10 mg/ml Inj (20 ML) ONE (14:30)
[2017-08-01] MEDS ORDERED: ceFAZolin IV 1 gm in Dextrose 2 GM/100 ML BAG IVPB ONE (14:32)
[2017-08-01] MEDS ORDERED: Bacitracin Ointment 30 GM TUBE ONE (14:32)
[2017-08-01] MEDS ORDERED: Bupivacaine 0.5% Inj(30mL) ONE (14:33)
[2017-08-01] MEDS ORDERED: Gentamicin 80 mg in 0.9% NS 0 MG/0 ML BAG IVPB ONE (14:33)
[2017-08-01] MEDS ORDERED: Lactated Ringer's 1,000 ML IV ONE ×2 (14:40→17:25)
--- NOTE | 2017-08-01 15:58 | MRI ---
MRI right knee History: Knee pain. Comparison: None available. Technique: Multi-echo multiplanar sequences were performed through the right knee without the use of intravenous contrast. Findings: Prominent comminuted depressed intra-articular fracture of the lateral proximal tibial plateau with articular surface depression measuring up to 1.1 centimeters. Fracture line extension to the lateral cortex of the proximal tibia to the level of the metadiaphysis. Status post anterior cruciate ligament graft repair. Some thinning and fraying with increased signal seen at the distal attachment of the graft best seen on series 5, image 12 suggestive for a moderate grade sprain and or mild partial tearing. Majority of the tendon strand fibers appear preserved on the coronal sequences. Low-grade sprain of the proximal attachment of the posterior cruciate ligament. Linear grade 1 intrasubstance degeneration in the posterior horn of the medial meniscus. Vertically-oriented increased signal seen within the anterior root and horn of the lateral meniscus extending to the superior articular surface best seen on series 5, images 9 and 10 suggestive for a tear. Medial collateral ligament is preserved. Some fraying with increased signal seen within the distal attachment of the fibular collateral ligament as well as the biceps femoris tendon attachment best seen on series 7, image 9 as well as series 3 images 18 and 19 suggestive for high grade strains and or partial tearing which raises the concern for possible posterior-lateral corner injury. Fluid and edema at the level of the posterior lateral corner. Quadriceps tendon is preserved. Patellar tendon is preserved. Prominent thickening and fluid surrounding the lateral patellar retinaculum suggestive for high grade strain and or partial tearing. Medial patellar retinaculum is preserved. Patellar cartilage is preserved. Prominent cartilage loss involving the lateral proximal tibia at the level of the fracture site. Large suprapatellar joint effusion. Impression: 1. Prominent comminuted depressed intra-articular fracture of the lateral proximal tibial plateau with articular surface depression measuring up to 1.1 centimeters. Fracture line extension to the lateral cortex of the proximal tibia to the level of the metadiaphysis. Prominent cartilage loss involving the lateral proximal tibia at the level of the fracture site. 2. Large suprapatellar joint effusion. 3. Vertically-oriented increased signal seen within the anterior root and horn of the lateral meniscus extending to the superior articular surface best seen on series 5, images 9 and 10 suggestive for a tear. 4. Some fraying with increased signal seen within the distal attachment of the fibular collateral ligament as well as the biceps femoris tendon attachment best seen on series 7, image 9 as well as series 3 images 18 and 19 suggestive for high grade strains and or partial tearing which raises the concern for possible posterior-lateral corner injury. Fluid and edema at the level of the posterior lateral corner. 5. Status post anterior cruciate ligament graft repair. Some thinning and fraying with increased signal seen at the distal attachment of the graft best seen on series 5, image 12 suggestive for a moderate grade sprain and or mild partial tearing. Majority of the tendon strand fibers appear preserved on the coronal sequences. 6. Low-grade sprain of the proximal attachment of the posterior cruciate ligament. 7. Linear grade 1 intrasubstance degeneration in the posterior horn of the medial meniscus. 8. Prominent thickening and fluid surrounding the lateral patellar retinaculum suggestive for high grade strain and or partial tearing.
--- NOTE | 2017-08-01 17:14 | CARD ---
APPROVED REPORT EKG Measurement Heart [id number] <Conclusion> Normal sinus rhythm Moderate voltage criteria for LVH, may be normal variant Borderline ECG
[2017-08-01] MEDS ORDERED: Neostigmine Methylsulfate 3mg/3ml Syringe IV ONE (17:33)
[2017-08-01] MEDS ORDERED: Morphine 4 MG/ML VIAL ONE ×2 (17:41→18:07)
[2017-08-01] MEDS ORDERED: Bupivacaine HCl 0.25% PF (10 ml) Inj ONE (17:49)
--- NOTE | 2017-08-01 17:54 | PCM.SURG1 ---
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 rupture arcutae ligament complex/posterolateral corner. peripheral separation lateral meniscus Operative Findings: as above Post-Operative Diagnosis: as above Operation Performed: ORIF comminuted/depressed tibial plateau fx (Right)- with lateral tibial plateau plate. primary repair posterol;ateral cornerextraartiuclar). reinforcemtn/augmentation of repair with internal brace technology. primary repair peripheral separation lateral meniscus. positioning of fluoro/interpretation of video images Specimen/Specimens Removed: fx callous/hematoma Estimated Blood Loss: EBL {In ML}: 55 Blood Products Given: N/A Drains Used: No Drains Post-Op Condition: Good Date of Surgery/Procedure: 08/01/17 Time of Surgery/Procedure: 15:40 (time in room/anesthesia induction time 1440)
[2017-08-01] MEDS ORDERED: ceFAZolin 1 gm FROZEN Premix 1 GM/50 ML ML IVPB SCH (18:00)
[2017-08-01] MEDS ORDERED: HYDROmorphone 1 mg/ml ISec IVP ONE (18:30)
[2017-08-01] MEDS: HYDROmorphone 0.5 mg/0.5 ml ISec IVP PRN ×2 (18:31→18:58)
[2017-08-01] MEDS: ceFAZolin IV 1 gm in Dextrose 1 GM/50 ML BAG IVPB SCH (20:12)
[2017-08-02] MEDS: HYDROmorphone 1 mg/ml ISec IVP PRN ×8 (00:05→23:53)
[2017-08-02] MEDS: ceFAZolin IV 1 gm in Dextrose 1 GM/50 ML BAG IVPB SCH ×3 (02:03→17:38)
[2017-08-02] MEDS: Hydrocodone/Acetaminophen 5 mg /300 mg Tab PO PRN ×2 (02:04→06:18)
[2017-08-02] MEDS ORDERED: Aluminum Hydroxide/Magnesium Hydroxide Susp (30 mL) PO ONE (04:01)
[2017-08-02 07:35] LABS: EOS % 0.1 % (0.0-4.0); HEMATOCRIT 35.2 % (34.0-47.0); LYMPH # 0.9 K/uL (1.0-4.3); LYMPH % 8.3 % (20.0-40.0); MEAN CORPUSCULAR HEMOGLOBIN 28.8 pg (27.0-31.0); MEAN CORPUSCULAR HGB CONC 33.8 g/dL (33.0-37.0); MEAN PLATELET VOLUME 8.3 fL (7.2-11.7); MONO # 0.9 K/uL (0.0-0.8); MONO % 7.8 % (0.0-10.0); PLATELET COUNT 246 K/uL (130-400); RED CELL DISTRIBUTION WIDTH 12.9 % (11.5-14.5)
[2017-08-02 07:41] LABS: WHITE BLOOD COUNT 11.3 K/uL (4.8-10.8)
[2017-08-02 08:05] LABS: ALB/GLOB RATIO 1.3 (1.0-2.1); ALKALINE PHOSPHATASE 66 U/L (38-126); ALT/SGPT 34 U/L (9-52); AST/SGOT 29 U/L (14-36); BILIRUBIN,TOTAL 1.1 mg/dL (0.2-1.3); BLOOD UREA NITROGEN 9 mg/dL (7-17); CALCIUM 8.7 mg/dl (8.6-10.4); CARBON DIOXIDE 26 mmol/L (22-30); CHLORIDE 97 mmol/L (98-107); GFR AFRICAN-AMERICAN > 60; GLUCOSE,RANDOM 97 mg/dL (65-105); MAGNESIUM 1.8 mg/dL (1.6-2.3); PHOSPHOROUS 4.2 mg/dL (2.5-4.5); SODIUM 133 mmol/L (132-148); TOTAL PROTEIN 7.2 g/dL (6.3-8.3)
[2017-08-02 08:27] LABS: NEUTROPHIL 80 % (50-75); TOTAL CELLS COUNTED 100
--- NOTE | 2017-08-02 08:29 | RAD ---
PROCEDURE: Right Knee Radiographs. HISTORY: s/p ORIF displaced lateral tibial plateau fx COMPARISON: None. FINDINGS: BONES: Lateral plate with with at least 8 horizontally traversing screws transfixing prior lateral tibial plateau depressed compression fracture residual radiolucent tunnels from anterior cruciate ligament reconstruction noted. JOINTS: Intrinsic mild osteoarthrosis inferred JOINT EFFUSION: No prominent joint effusion present. There is air in the joint consistent recent postop status OTHER FINDINGS: Extensive anterior and medial skin sutures. IMPRESSION: Open reduction and internal fixation of her prior depressed lateral tibial plateau fracture. Status post anterior cruciate ligament reconstruction type surgery
--- NOTE | 2017-08-02 08:59 | RAD ---
Chest x-ray single frontal view History: Fever. Comparison: 07/30/2017 Findings: No focal infiltrate or effusion. Small nodular density projecting over the medial right lung apex likely represents confluence of shadows with ribs and vessels. Mild venous congestion. Heart size within normal limits. Impression: No focal infiltrate or effusion. Small nodular density projecting over the medial right lung apex likely represents confluence of shadows with ribs and vessels. Mild venous congestion.
--- NOTE | 2017-08-02 09:14 | RAD ---
PROCEDURE: Intraoperative Fluoroscopy. HISTORY: TIBIAL PLATEAU FX FINDINGS: Fluoroscopic assistance was provided for right knee lateral tibial plateau fracture repair. Please refer to the operative report from
[2017-08-02] MEDS: Pantoprazole 40 mg EC Tab PO SCH (10:23)
--- NOTE | 2017-08-02 11:47 | CP.PCM.PN ---
<Yuridia Sousa - Last Filed: 08/02/17 11:43> Subjective - Date & Time of Evaluation Date of Evaluation: 08/02/17 Time of Evaluation: 07:20 - Subjective Subjective: Medicine note for Dr. Pati Leos seen and examined at bedside. Patient resting in bed complaining of worsening pain from the surgery yesterday. Maria Del Carmen says it starts at her ankle and travels up her LE to her knee. Patient says she has had a fever and does not have an appetite. Patient is using her incentive spirometer. She has not had a bowel movement but is urinating without difficulty. Patient says she wants to change her vicoden to percocet. She is also curious about her operative report and asking what hardware the surgeon used in her leg. Still complaining of GERD. Patient denies chills, chest pain, SOB, N&V, diarrhea, and loss of sensation her her LEs. Objective - Vital Signs/Intake and Output Vital Signs (last 24 hours): Temp Pulse Resp BP Pulse Ox 100.2 F H 91 H 18 129/83 99 08/02/17 08:26 08/02/17 08:26 08/02/17 08:26 08/02/17 08:26 08/02/17 08:26 Intake and Output: 08/02/17 08/02/17 06:59 18:59 Intake Total 200 Balance 200 - Medications Medications: Current Medications Aspirin (Aspirin) 325 mg PO DAILY [facility] [place] Last Admin: 08/02/17 10:23 Dose: 325 mg Docusate Sodium (Colace) 100 mg PO BID [facility] [place] Last Admin: 08/02/17 10:23 Dose: 100 mg Heparin Sodium (Porcine) (Heparin) 5,000 units SC Q8 [facility] [place] Last Admin: 07/31/17 21:54 Dose: 5,000 units Hydromorphone HCl (Dilaudid) 1 mg IVP Q3 PRN PRN Reason: Pain, severe (8-10) Last Admin: 08/02/17 11:17 Dose: 1 mg Cefazolin Sodium/Dextrose (Ancef Iv 1 Gm Duplex) 1 gm in 50 mls @ 100 mls/hr IVPB Q8H [facility] [place] Last Admin: 08/02/17 10:26 Dose: 100 mls/hr Ondansetron HCl (Zofran Inj) 4 mg IVP Q6 PRN PRN Reason: Nausea/Vomiting Last Admin: 08/02/17 08:10 Dose: 4 mg Oxycodone/Acetaminophen (Percocet 5/325 Mg Tab) 1 tab PO Q4H PRN PRN Reason: Pain, moderate (4-7) Stop: 08/05/17 10:14 Pantoprazole Sodium (Protonix Ec Tab) 40 mg PO DAILY [facility] Last Admin: 08/02/17 10:23 Dose: 40 mg - Labs Labs: 08/02/17 07:18 08/02/17 07:18 PT 12.6 SECONDS (9.7-12.2) H 08/01/17 06:47 INR 1.1 08/01/17 06:47 APTT 32 SECONDS (21-34) 08/01/17 06:47 - Additional Findings Additional findings: - Constitutional Appears: Non-toxic, No Acute Distress - Head Exam Head Exam: NORMAL INSPECTION - Eye Exam Eye Exam: EOMI - ENT Exam ENT Exam: Mucous Membranes Moist - Respiratory Exam Respiratory Exam: Clear to Auscultation Bilateral, NORMAL BREATHING PATTERN. absent: Rales, Rhonchi, Wheezes - Cardiovascular Exam Cardiovascular Exam: REGULAR RHYTHM, +S1, +S2. absent: Gallop, Irregular Rhythm , Rubs, Systolic Murmur - GI/Abdominal Exam GI & Abdominal Exam: Normal Bowel Sounds, Soft. absent: Distended, Firm, Guarding, Rigid, Tenderness - Extremities Exam Extremities exam: Positive for: pedal pulses present. Negative for: pedal edema Additional comments: Full ROM in toes right LE in bandage and brace - Neurological Exam Neurological exam: Alert, Oriented x3 Additional comments: no sensory deficit in toes - Psychiatric Exam Psychiatric exam: Normal Affect, Normal Mood - Skin Skin Exam: Dry, Normal Color Assessment and Plan - Assessment and Plan (Free Text) Plan: Right Tibial Fracture Right Knee X Ray 07/30/17 - acute depressed complete nondisplaced fracture of the lateral tibial plateau with associated hemarthrosis (please see full report) Right Knee CT 07/30/17 - complex comminuted intra-articular fracture deformity seen through the lateral proximal tibial plateau with approximately 1.1cm articular surface depression of the proximal tibia. Fracture extension to the lateral and posterior cortices. Patient status post ACL graft repair. Lucency noted adjacent to the proximal tibial screw which may represent some screw loosening. Large suprapatellar joint effusion with hemarthrosis. Some heterogeneity and a suggestion of a fat containing foci seen lateral to proximal tibia (please see full report) Ortho consult - Dr. Hernandez - help appreciated * Surgery for fracture on 08/01/17 * Will need incentive spirometer at bedside post op * INR 1.1 * CXR: No active disease. No significant interval change compared to the prior examination(s) * F/U RLE MRI: 1. Prominent comminuted depressed intra-articular fracture of the lateral proximal tibial plateau with articular surface depression measuring up to 1.1 centimeters. Fracture line extension to the lateral cortex of the proximal tibia to the level of the metadiaphysis. Prominent cartilage loss involving the lateral proximal tibia at the level of the fracture site. 2. Large suprapatellar joint effusion. 3. Vertically-oriented increased signal seen within the anterior root and horn of the lateral meniscus extending to the superior articular surface best seen on series 5, images 9 and 10 suggestive for a tear. 4. Some fraying with increased signal seen within the distal attachment of the fibular collateral ligament as well as the biceps femoris tendon attachment best seen on series 7, image 9 as well as series 3 images 18 and 19 suggestive for high grade strains and or partial tearing which raises the concern for possible posterior-lateral corner injury. Fluid and edema at the level of the posterior lateral corner. 5. Status post anterior cruciate ligament graft repair. Some thinning and fraying with increased signal seen at the distal attachment of the graft best seen on series 5, image 12 suggestive for a moderate grade sprain and or mild partial tearing. Majority of the tendon strand fibers appear preserved on the coronal sequences. 6. Low-grade sprain of the proximal attachment of the posterior cruciate ligament. 7. Linear grade 1 intrasubstance degeneration in the posterior horn of the medial meniscus. 8. Prominent thickening and fluid surrounding the lateral patellar retinaculum suggestive for high grade strain and or partial tearing. * Patient may need 2nd surgery for ACL repair * EKG: possible mild LVH, otherwise NSR and WNL * Blood type: A+ * Ab screen: negative Dilaudid 1 mg Q3H PRN severe pain Percocet PO Q6 PRN moderate pain Discontinued Morphine 4mg IVP Q4H PRN severe pain Zofran 4mg IVP Q6 PRN nausea/vomiting Fever Leukocytosis likely 2/2 recent surgery f/u Blood cultures and Urine culture and stain CXR: no disease Constipation Colace 100mg PO BID History of Herniated discs vicodin 5-300mg discontinued because of addition of percocet History of hyperthyroidism Last TSH on 06/22/17 was 0.47 - WNL History of SLE Patient used to take plaquinil but it gave her migraines and tinnitus She and her doctor decided to stop it History of brain colloid cyst First diagnosed 2010 Patient follows up outpatient with Dr. Max and gets an MRI every 3 years History of gastritis Protonix 40mg PO daily Prophylaxis Heparin 5000U SC Q8 Protonix 40mg PO daily <Helder Krueger H - Last Filed: 08/02/17 14:09> Objective - Vital Signs/Intake and Output Vital Signs (last 24 hours): Temp Pulse Resp BP Pulse Ox 100.2 F H 91 H 18 129/83 99 08/02/17 08:26 08/02/17 08:26 08/02/17 08:26 08/02/17 08:26 08/02/17 08:26 Intake and Output: 08/02/17 08/02/17 06:59 18:59 Intake Total 200 480 Output Total 500 Balance 200 -20 - Medications Medications: Current Medications Aspirin (Aspirin) 325 mg PO DAILY [facility] [place] Last Admin: 08/02/17 10:23 Dose: 325 mg Docusate Sodium (Colace) 100 mg PO BID [facility] [place] Last Admin: 08/02/17 10:23 Dose: 100 mg Heparin Sodium (Porcine) (Heparin) 5,000 units SC Q8 [facility] [place] Last Admin: 07/31/17 21:54 Dose: 5,000 units Hydromorphone HCl (Dilaudid) 1 mg IVP Q3 PRN PRN Reason: Pain, severe (8-10) Last Admin: 08/02/17 11:17 Dose: 1 mg Cefazolin Sodium/Dextrose (Ancef Iv 1 Gm Duplex) 1 gm in 50 mls @ 100 mls/hr IVPB Q8H [facility] [place] Last Admin: 08/02/17 10:26 Dose: 100 mls/hr Ondansetron HCl (Zofran Inj) 4 mg IVP Q6 PRN PRN Reason: Nausea/Vomiting Last Admin: 08/02/17 08:10 Dose: 4 mg Oxycodone/Acetaminophen (Percocet 5/325 Mg Tab) 1 tab PO Q4H PRN PRN Reason: Pain, moderate (4-7) Stop: 08/05/17 10:14 Last Admin: 08/02/17 12:22 Dose: 1 tab Pantoprazole Sodium (Protonix Ec Tab) 40 mg PO DAILY [facility] Last Admin: 08/02/17 10:23 Dose: 40 mg - Labs Labs: 08/02/17 07:18 08/02/17 07:18 PT 12.6 SECONDS (9.7-12.2) H 08/01/17 06:47 INR 1.1 08/01/17 06:47 APTT 32 SECONDS (21-34) 08/01/17 06:47 Attending/Attestation - Attestation I have personally seen and examined this patient.: Yes I have fully participated in the care of the patient.: Yes I have reviewed all pertinent clinical information, including history, physical exam and plan: Yes Notes (Text): Medical attending: Patient was seen and examined by me, agree with the above note by medical laboratory technical officer. Family members were present at bedside. The patient was okay with this. She is status post ORIF of right tibial plateau/knee. Overnight she developed elevated temperature this is probably secondary to recent procedure she just had. Nevertheless blood cultures and urine cultures were sampled. We explained to monitor these things. Her pain medication was again changed for better pain control. thank you Helder Krueger
[2017-08-02] MEDS: Oxycodone/Acetaminophen 5/325 mg Tab PO PRN ×3 (12:22→22:01)
--- NOTE | 2017-08-02 19:27 | CP.PCM.PN ---
Subjective - Date & Time of Evaluation Date of Evaluation: 08/02/17 Time of Evaluation: 19:30 - Subjective Subjective: S- pt with post op discomfort Objective - Vital Signs/Intake and Output Vital Signs (last 24 hours): Temp Pulse Resp BP Pulse Ox 99.1 F 80 20 134/74 97 08/02/17 15:11 08/02/17 15:00 08/02/17 15:00 08/02/17 15:00 08/02/17 15:00 Intake and Output: 08/02/17 08/03/17 18:59 06:59 Intake Total 480 Output Total 500 Balance -20 - Medications Medications: Current Medications Aspirin (Aspirin) 325 mg PO DAILY [facility] Last Admin: 08/02/17 10:23 Dose: 325 mg Docusate Sodium (Colace) 100 mg PO BID [facility] Last Admin: 08/02/17 17:37 Dose: 100 mg Heparin Sodium (Porcine) (Heparin) 5,000 units SC Q8 [facility] Last Admin: 07/31/17 21:54 Dose: 5,000 units Hydromorphone HCl (Dilaudid) 1 mg IVP Q3 PRN PRN Reason: Pain, severe (8-10) Last Admin: 08/02/17 17:38 Dose: 1 mg Cefazolin Sodium/Dextrose (Ancef Iv 1 Gm Duplex) 1 gm in 50 mls @ 100 mls/hr IVPB Q8H [facility] Last Admin: 08/02/17 17:38 Dose: 100 mls/hr Ondansetron HCl (Zofran Inj) 4 mg IVP Q6 PRN PRN Reason: Nausea/Vomiting Last Admin: 08/02/17 08:10 Dose: 4 mg Oxycodone/Acetaminophen (Percocet 5/325 Mg Tab) 1 tab PO Q4H PRN PRN Reason: Pain, moderate (4-7) Stop: 08/05/17 10:14 Last Admin: 08/02/17 17:00 Dose: 1 tab Pantoprazole Sodium (Protonix Ec Tab) 40 mg PO DAILY [facility] Last Admin: 08/02/17 10:23 Dose: 40 mg - Labs Labs: 08/02/17 07:18 08/02/17 07:18 PT 12.6 SECONDS (9.7-12.2) H 08/01/17 06:47 INR 1.1 08/01/17 06:47 APTT 32 SECONDS (21-34) 08/01/17 06:47 - Additional Findings Additional findings: systemic- wnl.. Musculskeletal- stance/gait- defrred knee immobilizer intact orthopedicallys tsable post op xrays reveal acceptable position of construct Assessment and Plan - Assessment and Plan (Free Text) Assessment: A- s/p ORIF tibial plateau fx P- orthopedi alex stable physio- strict toe toch weight bearing with walker/crutches
[2017-08-03] MEDS: Oxycodone/Acetaminophen 5/325 mg Tab PO PRN ×3 (01:58→09:16)
[2017-08-03] MEDS: ceFAZolin IV 1 gm in Dextrose 1 GM/50 ML BAG IVPB SCH ×3 (02:06→17:26)
[2017-08-03] MEDS: HYDROmorphone 1 mg/ml ISec IVP PRN (03:00)
[2017-08-03] MEDS: HYDROmorphone 0.5 mg/0.5 ml ISec IVP PRN ×2 (06:52→09:57)
[2017-08-03 07:37] LABS: BASO % 0.3 % (0.0-2.0); EOS # 0.1 K/uL (0.0-0.7); EOS % 1.3 % (0.0-4.0); HEMATOCRIT 33.7 % (34.0-47.0); LYMPH # 1.7 K/uL (1.0-4.3); LYMPH % 18.2 % (20.0-40.0); MEAN CELL VOLUME 86.7 fL (81.0-99.0); MEAN CORPUSCULAR HEMOGLOBIN 29.9 pg (27.0-31.0); MEAN CORPUSCULAR HGB CONC 34.4 g/dL (33.0-37.0); MEAN PLATELET VOLUME 7.9 fL (7.2-11.7); MONO % 11.2 % (0.0-10.0); WHITE BLOOD COUNT 9.4 K/uL (4.8-10.8)
[2017-08-03 08:09] LABS: ALB/GLOB RATIO 1.3 (1.0-2.1); ALKALINE PHOSPHATASE 62 U/L (38-126); ALT/SGPT 34 U/L (9-52); AST/SGOT 28 U/L (14-36); BILIRUBIN,TOTAL 1.7 mg/dL (0.2-1.3); BLOOD UREA NITROGEN 9 mg/dL (7-17); CALCIUM 8.3 mg/dl (8.6-10.4); CARBON DIOXIDE 31 mmol/L (22-30); CHLORIDE 95 mmol/L (98-107); GFR AFRICAN-AMERICAN > 60; GLUCOSE,RANDOM 89 mg/dL (65-105); MAGNESIUM 1.9 mg/dL (1.6-2.3); PHOSPHOROUS 2.9 mg/dL (2.5-4.5); SODIUM 133 mmol/L (132-148); TOTAL PROTEIN 7.1 g/dL (6.3-8.3)
[2017-08-03] MEDS: Pantoprazole 40 mg EC Tab PO SCH (09:16)
--- NOTE | 2017-08-03 17:57 | OP ---
PROCEDURE DATE: 08/01/2017 PREOPERATIVE DIAGNOSES: 1. Displaced, comminuted lateral tibia plateau fracture with greater than 1 cm depression and multiple comminution. 2. Rupture of articular ligament and lateral collateral ligament complex, not displaced. 3. Peripheral separation, lateral meniscus. POSTOPERATIVE DIAGNOSES: 1. Displaced, comminuted lateral tibia plateau fracture with greater than 1 cm depression and multiple comminution. 2. Rupture of articular ligament and lateral collateral ligament complex, not displaced. 3. Peripheral separation, lateral meniscus. OPERATIVE FINDINGS: 1. Displaced, comminuted lateral tibia plateau fracture with greater than 1 cm depression and multiple comminution. 2. Rupture of articular ligament and lateral collateral ligament complex, not displaced. 3. Peripheral separation, lateral meniscus. PROCEDURES: 1. Open reduction and internal fixation, depressed, comminuted tibial plateau fracture with lateral tibial plate. 2. Primary repair of posterolateral corner, lateral collateral ligament with reinforcement. 3. Reinforcement augmentation of the repair with internal brace technology. 4. Primary repair of peripheral separation, lateral meniscus. 5. Allograft, autograft bone grafting. 6. Positioning of fluoroscope and interpretation of video images. 7. Application of Frank Garsia compression dressing and knee immobilizer. SURGEON: Carlos Hernandez MD. HEALTHCARE ECONOMICS CONSULTANT: Terese Pelayo, certified registered nursing first calender worker. SECOND HAND MIXER: Kathleen, third year medical student. ESTIMATED BLOOD LOSS: 55 mL, no blood products given. DRAINS: None. POSTOPERATIVE CONDITION: Stable. 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 The patient sustained severe pain on the lateral aspect of the knee. The patient was stabilized and admitted, consultation was accomplished, and pros, cons, risks, and benefits of the surgical approach were discussed. The concept of mechanical failure, infection, thromboembolic disease, and secondary or tertiary surgeries was discussed. The concept that because of the magnitude of this injury, posttraumatic arthritis is almost a certainty. Concept that this patient may require a total knee replacement or arthroplasty down the line was discussed. DESCRIPTION OF PROCEDURE: After having obtained informed consent from the patient again, who is a nursing professional; after the satisfactory induction of general endotracheal anesthesia with regional block by Dr. De Souza; after having identified the side, site, and procedure and a critical pause/time-out, the patient was identified as Brittany Lemon in the supine position with all bony prominences well-padded, the right lower extremity was prepped and free draped in the usual fashion for lower extremity surgery. The tourniquet had been applied, but is not yet inflated. Prior to exsanguinating the limb, under the surgeon's direction, the fluoroscope was positioned, video images were generated, and therapeutic decisions were made therefrom. This having been accomplished, the pathoanatomy of the fracture was identified. This having been accomplished, the joint was identified with spinal needles. Incision was described from the lateral joint line lateral to the tibial spine. The skin incision was carried down through the skin and subcutaneous tissue. The flap was elevated carefully and left deep so as not to compromise the skin vasculature. Stay suture was applied. At this point in time, taking great care to avoid injury to the peroneal nerve or its branches, the lateral compartment musculature was carefully taken down intact. This having been accomplished, the fracture was identified and there was found to be multiple comminution. There was found to be evidence of hematoma in the area of the posterolateral corner and in the area of the lateral collateral ligament. The wound was thoroughly irrigated. At this point in time, using an osteotome and taking great care under direct vision, the meniscus, which has been found to be in the posterolateral region is elevated from the tibial plateau. The meniscal plane between the bone and the meniscus is developed and this having been accomplished, the tibia plateau fragment laterally was opened. The fragments were elevated. This having been accomplished, under the surgeon's direction, the fluoroscope was positioned, video images were generated, and therapeutic decisions were made therefrom. This having been accomplished with the periosteum elevator, opening the fracture fragment, but not displacing it, the comminution was tapped with a bone tap to obtain the tibial plateau laterally. This having been accomplished, the position was found to be acceptable on image intensification views, the Norian was employed. The allograft bone graft and autograft bone graft were employed. A combination of the Norian and DBX employed to elevate the tibial plateau. The tibial plateau was then reduced using a bone holding clamp, the position was found to be acceptable. The contour of the lateral tibial plateau was regained to the best of its ability. The lateral tibial plateau plate was applied to the lateral aspect of the tibia. Each sequential drill hole was drilled, tapped and the appropriate-sized screw was placed. Verification of the position was offered on AP and lateral image intensification views. This having been accomplished, the hematoma in the area of the lateral collateral and the posterolateral corner was identified and repair was offered using interrupted FiberWire sutures. At this point in time, primary repair of the peripheral separation of the lateral meniscus was accomplished as well with 0 FiberWire under direct vision, both from the anterior aspect to the posterolateral aspect of the capsular separation. The meniscus having been repaired at this point in time under the surgeon's direction, the origin of the lateral collateral ligament was identified and verified using image intensification views. At this point in time, the Arthrex internal brace technology was used to reinforce and augment the collateral ligament repair. The drilling was accomplished followed by reaming. The SwiveLock anchor was introduced. The fiber braid is loaded and is brought subcutaneously to the area of the tibia posterolaterally. This having been accomplished, drilling was accomplished followed by reaming, tapping, and again the SwiveLock is employed. With the knee at approximately 30 degrees of flexion, the internal brace was tensioned. The knee was taken through a range of motion. The wound was thoroughly irrigated and found to be stable laterally and excellent. Verification of the position is offered on image intensification views. The wound was thoroughly irrigated. The anterolateral musculature was repaired using Vicryl. Skin was closed using interrupted Vicryl and lg for skin. The tourniquet had been deflated, hemostasis controlled with the Aquamantys. Frank Garsia compression dressing and knee immobilizer was applied. Postoperative x-rays revealed acceptable position of the construct. Carlos Hernandez MD
--- NOTE | 2017-08-03 20:56 | CP.PCM.PN ---
<Yuridia Sousa - Last Filed: 08/03/17 20:51> Subjective - Date & Time of Evaluation Date of Evaluation: 08/03/17 Time of Evaluation: 07:30 - Subjective Subjective: Medicine note for Dr. Krueger Patient seen and examined at bedside. Patient resting in bed complaining of pain that is keeping her up at night and keeping her from doing PT. She wants a change in her pain regimen. Patient is using her incentive spirometer. Still complaining of occasional GERD symptoms. Patient denies chills, chest pain, SOB , N&V, diarrhea, and loss of sensation her her LEs. Objective - Vital Signs/Intake and Output Vital Signs (last 24 hours): Temp Pulse Resp BP Pulse Ox 99.2 F 87 20 104/66 96 08/03/17 08:17 08/03/17 15:32 08/03/17 15:32 08/03/17 15:32 08/03/17 15:32 - Medications Medications: Current Medications Aspirin (Aspirin) 325 mg PO DAILY [facility] Last Admin: 08/03/17 09:16 Dose: 325 mg Cyclobenzaprine HCl (Flexeril) 5 mg PO TID [facility] Last Admin: 08/03/17 17:26 Dose: 5 mg Docusate Sodium (Colace) 100 mg PO BID [facility] Last Admin: 08/03/17 17:26 Dose: 100 mg Gabapentin (Neurontin) 300 mg PO TID [facility] Last Admin: 08/03/17 17:26 Dose: 300 mg Heparin Sodium (Porcine) (Heparin) 5,000 units SC Q8 [facility] Last Admin: 07/31/17 21:54 Dose: 5,000 units Hydromorphone HCl (Dilaudid) 2 mg IVP Q3H PRN PRN Reason: Pain, severe (8-10) Last Admin: 08/03/17 15:09 Dose: 2 mg Cefazolin Sodium/Dextrose (Ancef Iv 1 Gm Duplex) 1 gm in 50 mls @ 100 mls/hr IVPB Q8H [facility] Last Admin: 08/03/17 17:26 Dose: 100 mls/hr Ketorolac Tromethamine (Toradol) 30 mg IVP Q6 PRN PRN Reason: Pain, moderate (4-7) Last Admin: 08/03/17 13:06 Dose: 30 mg Ondansetron HCl (Zofran Inj) 4 mg IVP Q6 PRN PRN Reason: Nausea/Vomiting Last Admin: 08/03/17 09:32 Dose: 4 mg Oxycodone/Acetaminophen (Percocet 5/325 Mg Tab) 1 tab PO Q4H PRN PRN Reason: Pain, moderate (4-7) Stop: 08/05/17 10:14 Last Admin: 08/03/17 09:16 Dose: 1 tab Pantoprazole Sodium (Protonix Ec Tab) 40 mg PO DAILY [facility] Last Admin: 08/03/17 09:16 Dose: 40 mg - Labs Labs: 08/03/17 07:23 08/03/17 07:23 PT 12.6 SECONDS (9.7-12.2) H 08/01/17 06:47 INR 1.1 08/01/17 06:47 APTT 32 SECONDS (21-34) 08/01/17 06:47 - Additional Findings Additional findings: - Constitutional Appears: Non-toxic, No Acute Distress - Head Exam Head Exam: NORMAL INSPECTION - Eye Exam Eye Exam: EOMI - ENT Exam ENT Exam: Mucous Membranes Moist - Respiratory Exam Respiratory Exam: Clear to Auscultation Bilateral, NORMAL BREATHING PATTERN. absent: Rales, Rhonchi, Wheezes - Cardiovascular Exam Cardiovascular Exam: REGULAR RHYTHM, +S1, +S2. absent: Gallop, Irregular Rhythm , Rubs, Systolic Murmur - GI/Abdominal Exam GI & Abdominal Exam: Normal Bowel Sounds, Soft. absent: Distended, Firm, Guarding, Rigid, Tenderness - Extremities Exam Extremities exam: Positive for: pedal pulses present. Negative for: pedal edema Additional comments: Full ROM in toes right LE in bandage and brace - Neurological Exam Neurological exam: Alert, Oriented x3 Additional comments: no sensory deficit in toes - Psychiatric Exam Psychiatric exam: Normal Affect, Normal Mood - Skin Skin Exam: Dry, Normal Color Assessment and Plan - Assessment and Plan (Free Text) Plan: Right Tibial Fracture Right Knee X Ray 07/30/17 - acute depressed complete nondisplaced fracture of the lateral tibial plateau with associated hemarthrosis (please see full report) Right Knee CT 07/30/17 - complex comminuted intra-articular fracture deformity seen through the lateral proximal tibial plateau with approximately 1.1cm articular surface depression of the proximal tibia. Fracture extension to the lateral and posterior cortices. Patient status post ACL graft repair. Lucency noted adjacent to the proximal tibial screw which may represent some screw loosening. Large suprapatellar joint effusion with hemarthrosis. Some heterogeneity and a suggestion of a fat containing foci seen lateral to proximal tibia (please see full report) Ortho consult - Dr. Hernandez - help appreciated * Surgery for fracture on 08/01/17 * Will need incentive spirometer at bedside post op * INR 1.1 * CXR: No active disease. No significant interval change compared to the prior examination(s) * F/U RLE MRI: 1. Prominent comminuted depressed intra-articular fracture of the lateral proximal tibial plateau with articular surface depression measuring up to 1.1 centimeters. Fracture line extension to the lateral cortex of the proximal tibia to the level of the metadiaphysis. Prominent cartilage loss involving the lateral proximal tibia at the level of the fracture site. 2. Large suprapatellar joint effusion. 3. Vertically-oriented increased signal seen within the anterior root and horn of the lateral meniscus extending to the superior articular surface best seen on series 5, images 9 and 10 suggestive for a tear. 4. Some fraying with increased signal seen within the distal attachment of the fibular collateral ligament as well as the biceps femoris tendon attachment best seen on series 7, image 9 as well as series 3 images 18 and 19 suggestive for high grade strains and or partial tearing which raises the concern for possible posterior-lateral corner injury. Fluid and edema at the level of the posterior lateral corner. 5. Status post anterior cruciate ligament graft repair. Some thinning and fraying with increased signal seen at the distal attachment of the graft best seen on series 5, image 12 suggestive for a moderate grade sprain and or mild partial tearing. Majority of the tendon strand fibers appear preserved on the coronal sequences. 6. Low-grade sprain of the proximal attachment of the posterior cruciate ligament. 7. Linear grade 1 intrasubstance degeneration in the posterior horn of the medial meniscus. 8. Prominent thickening and fluid surrounding the lateral patellar retinaculum suggestive for high grade strain and or partial tearing. * Patient may need 2nd surgery for ACL repair * EKG: possible mild LVH, otherwise NSR and WNL * Blood type: A+ * Ab screen: negative Dilaudid 2 mg Q3H PRN severe pain Percocet PO Q6 PRN moderate pain Gabapentin 300 PO TID Toradol 30 IV Q6 Flexeril 5 TID Discontinued Morphine 4mg IVP Q4H PRN severe pain Zofran 4mg IVP Q6 PRN nausea/vomiting Fever Leukocytosis likely 2/2 recent surgery f/u Blood cultures and Urine culture and stain CXR: no disease Constipation Colace 100mg PO BID History of Herniated discs vicodin 5-300mg discontinued because of addition of percocet History of hyperthyroidism Last TSH on 06/22/17 was 0.47 - WNL History of SLE Patient used to take plaquinil but it gave her migraines and tinnitus She and her doctor decided to stop it History of brain colloid cyst First diagnosed 2010 Patient follows up outpatient with Dr. Max and gets an MRI every 3 years History of gastritis Protonix 40mg PO daily Prophylaxis Heparin 5000U SC Q8 Protonix 40mg PO daily <Helder Krueger - Last Filed: 08/04/17 08:47> Objective - Vital Signs/Intake and Output Vital Signs (last 24 hours): Temp Pulse Resp BP Pulse Ox 98.6 F 87 20 118/79 97 08/04/17 07:40 08/04/17 07:40 08/04/17 07:40 08/04/17 07:40 08/04/17 07:40 Intake and Output: 08/04/17 08/04/17 06:59 18:59 Intake Total 450 Balance 450 - Medications Medications: Current Medications Aspirin (Aspirin) 325 mg PO DAILY [facility] Last Admin: 08/03/17 09:16 Dose: 325 mg Cyclobenzaprine HCl (Flexeril) 5 mg PO TID [facility] Last Admin: 08/03/17 17:26 Dose: 5 mg Docusate Sodium (Colace) 100 mg PO BID [facility] Last Admin: 08/03/17 17:26 Dose: 100 mg Gabapentin (Neurontin) 300 mg PO TID [facility] Last Admin: 08/03/17 17:26 Dose: 300 mg Heparin Sodium (Porcine) (Heparin) 5,000 units SC Q8 [facility] Last Admin: 07/31/17 21:54 Dose: 5,000 units Hydromorphone HCl (Dilaudid) 2 mg IVP Q3H PRN PRN Reason: Pain, severe (8-10) Last Admin: 08/04/17 08:03 Dose: 2 mg Cefazolin Sodium/Dextrose (Ancef Iv 1 Gm Duplex) 1 gm in 50 mls @ 100 mls/hr IVPB Q8H [facility] Last Admin: 08/04/17 01:28 Dose: 100 mls/hr Ketorolac Tromethamine (Toradol) 30 mg IVP Q6 PRN PRN Reason: Pain, moderate (4-7) Last Admin: 08/04/17 06:24 Dose: 30 mg Ondansetron HCl (Zofran Inj) 4 mg IVP Q6 PRN PRN Reason: Nausea/Vomiting Last Admin: 08/03/17 09:32 Dose: 4 mg Oxycodone/Acetaminophen (Percocet 5/325 Mg Tab) 1 tab PO Q4H PRN PRN Reason: Pain, moderate (4-7) Stop: 08/05/17 10:14 Last Admin: 08/03/17 09:16 Dose: 1 tab Pantoprazole Sodium (Protonix Ec Tab) 40 mg PO DAILY [facility] Last Admin: 08/03/17 09:16 Dose: 40 mg - Labs Labs: 08/04/17 06:32 08/04/17 06:32 PT 12.6 SECONDS (9.7-12.2) H 08/01/17 06:47 INR 1.1 08/01/17 06:47 APTT 32 SECONDS (21-34) 08/01/17 06:47 Attending/Attestation - Attestation I have personally seen and examined this patient.: Yes I have fully participated in the care of the patient.: Yes I have reviewed all pertinent clinical information, including history, physical exam and plan: Yes Notes (Text): Medical attending: Patient was seen and examined by me, agree with the above note by director medical writing. The patient had a rough night yesterday, she said that her pain was simply very out of control despite being on the pain regimen that I have her on. The patient 's primary care physician notified me that she often gives shots of Toradol, as well as gabapentin and Flexeril. So when I saw the patient explained that were to start these and see if they help. Furthermore working received anesthesiology will be willing to come back and do a nerve block for this patient since she still very significant amounts of pain. Plain to me that she was leaving the operation she did get a nerve block and that seemed to help with the knee pain that she had a lot of ankle pain now and I'm seeing her again and she has a lot of pain particularly in the knees and it's giving her very hard time participating with physical therapy She had another fever again, blood cultures and urine cultures have been negative at this time and will continue continue to monitor these for any changes Thank you very much, Helder Krueger
[2017-08-04] MEDS: ceFAZolin IV 1 gm in Dextrose 1 GM/50 ML BAG IVPB SCH ×3 (01:28→19:52)
[2017-08-04 06:44] LABS: BASO % 0.5 % (0.0-2.0); EOS # 0.3 K/uL (0.0-0.7); EOS % 3.5 % (0.0-4.0); HEMATOCRIT 33.1 % (34.0-47.0); LYMPH # 2.2 K/uL (1.0-4.3); LYMPH % 26.1 % (20.0-40.0); MEAN CELL VOLUME 86.3 fL (81.0-99.0); MEAN CORPUSCULAR HEMOGLOBIN 29.6 pg (27.0-31.0); MEAN CORPUSCULAR HGB CONC 34.3 g/dL (33.0-37.0); MEAN PLATELET VOLUME 7.8 fL (7.2-11.7); MONO # 0.9 K/uL (0.0-0.8); MONO % 10.3 % (0.0-10.0); WHITE BLOOD COUNT 8.6 K/uL (4.8-10.8)
[2017-08-04 06:55] LABS: SODIUM 133 mmol/L (132-148)
[2017-08-04 07:15] LABS: BLOOD UREA NITROGEN 12 mg/dL (7-17); CALCIUM 8.5 mg/dl (8.6-10.4); CARBON DIOXIDE 27 mmol/L (22-30); CHLORIDE 95 mmol/L (98-107); GFR AFRICAN-AMERICAN > 60; GLUCOSE,RANDOM 83 mg/dL (65-105); MAGNESIUM 1.9 mg/dL (1.6-2.3); PHOSPHOROUS 4.1 mg/dL (2.5-4.5); POTASSIUM 3.9 mmol/L (3.6-5.2); TOTAL PROTEIN 6.7 g/dL (6.3-8.3)
[2017-08-04 07:16] LABS: ALB/GLOB RATIO 1.2 (1.0-2.1); ALKALINE PHOSPHATASE 57 U/L (38-126); ALT/SGPT 29 U/L (9-52); AST/SGOT 20 U/L (14-36); BILIRUBIN,TOTAL 0.9 mg/dL (0.2-1.3)
--- NOTE | 2017-08-04 07:57 | CP.PCM.PN ---
<Yuridia Sousa - Last Filed: 08/04/17 09:56> Subjective - Date & Time of Evaluation Date of Evaluation: 08/04/17 Time of Evaluation: 07:57 - Subjective Subjective: Medicine note for Dr. Krueger Patient seen and examined at bedside. Patient resting comfortably in bed with no new complaints at this time. She says her pain is much more controlled now with the increase in dilaudid and the addition of toradol and gabapentin. Patient is using her incentive spirometer. Still complaining of occasional GERD symptoms. She has not had a BM yet but is passing flatulance. Patient denies chills, chest pain, SOB, N&V, diarrhea, and loss of sensation her her LEs. Objective - Vital Signs/Intake and Output Vital Signs (last 24 hours): Temp Pulse Resp BP Pulse Ox 99.2 F 106 H 20 120/77 97 08/03/17 23:25 08/03/17 23:25 08/03/17 23:25 08/03/17 23:25 08/03/17 23:25 Intake and Output: 08/04/17 08/04/17 06:59 18:59 Intake Total 450 Balance 450 - Medications Medications: Current Medications Aspirin (Aspirin) 325 mg PO DAILY [facility] Last Admin: 08/03/17 09:16 Dose: 325 mg Cyclobenzaprine HCl (Flexeril) 5 mg PO TID [facility] Last Admin: 08/03/17 17:26 Dose: 5 mg Docusate Sodium (Colace) 100 mg PO BID [facility] Last Admin: 08/03/17 17:26 Dose: 100 mg Gabapentin (Neurontin) 300 mg PO TID [facility] Last Admin: 08/03/17 17:26 Dose: 300 mg Heparin Sodium (Porcine) (Heparin) 5,000 units SC Q8 [facility] Last Admin: 07/31/17 21:54 Dose: 5,000 units Hydromorphone HCl (Dilaudid) 2 mg IVP Q3H PRN PRN Reason: Pain, severe (8-10) Last Admin: 08/04/17 00:02 Dose: 2 mg Cefazolin Sodium/Dextrose (Ancef Iv 1 Gm Duplex) 1 gm in 50 mls @ 100 mls/hr IVPB Q8H [facility] Last Admin: 08/04/17 01:28 Dose: 100 mls/hr Ketorolac Tromethamine (Toradol) 30 mg IVP Q6 PRN PRN Reason: Pain, moderate (4-7) Last Admin: 08/04/17 06:24 Dose: 30 mg Ondansetron HCl (Zofran Inj) 4 mg IVP Q6 PRN PRN Reason: Nausea/Vomiting Last Admin: 08/03/17 09:32 Dose: 4 mg Oxycodone/Acetaminophen (Percocet 5/325 Mg Tab) 1 tab PO Q4H PRN PRN Reason: Pain, moderate (4-7) Stop: 08/05/17 10:14 Last Admin: 08/03/17 09:16 Dose: 1 tab Pantoprazole Sodium (Protonix Ec Tab) 40 mg PO DAILY [facility] Last Admin: 08/03/17 09:16 Dose: 40 mg - Labs Labs: 08/04/17 06:32 08/04/17 06:32 PT 12.6 SECONDS (9.7-12.2) H 08/01/17 06:47 INR 1.1 08/01/17 06:47 APTT 32 SECONDS (21-34) 08/01/17 06:47 - Additional Findings Additional findings: - Constitutional Appears: Non-toxic, No Acute Distress - Head Exam Head Exam: NORMAL INSPECTION - Eye Exam Eye Exam: EOMI - ENT Exam ENT Exam: Mucous Membranes Moist - Respiratory Exam Respiratory Exam: Clear to Auscultation Bilateral, NORMAL BREATHING PATTERN. absent: Rales, Rhonchi, Wheezes - Cardiovascular Exam Cardiovascular Exam: REGULAR RHYTHM, +S1, +S2. absent: Gallop, Irregular Rhythm , Rubs, Systolic Murmur - GI/Abdominal Exam GI & Abdominal Exam: Normal Bowel Sounds, Soft. absent: Distended, Firm, Guarding, Rigid, Tenderness - Extremities Exam Extremities exam: Positive for: pedal pulses present. Negative for: pedal edema Additional comments: Full ROM in toes right LE in bandage and brace - Neurological Exam Neurological exam: Alert, Oriented x3 Additional comments: no sensory deficit in toes - Psychiatric Exam Psychiatric exam: Normal Affect, Normal Mood - Skin Skin Exam: Dry, Normal Color Assessment and Plan - Assessment and Plan (Free Text) Plan: Disposition: Patient will be discharged to [facility] likely Sunday (08/06). Continue current pain management and PT for now. Right Tibial Fracture Right Knee X Ray 07/30/17 - acute depressed complete nondisplaced fracture of the lateral tibial plateau with associated hemarthrosis (please see full report) Right Knee CT 07/30/17 - complex comminuted intra-articular fracture deformity seen through the lateral proximal tibial plateau with approximately 1.1cm articular surface depression of the proximal tibia. Fracture extension to the lateral and posterior cortices. Patient status post ACL graft repair. Lucency noted adjacent to the proximal tibial screw which may represent some screw loosening. Large suprapatellar joint effusion with hemarthrosis. Some heterogeneity and a suggestion of a fat containing foci seen lateral to proximal tibia (please see full report) Ortho consult - Dr. Hernandez - help appreciated * Surgery for fracture on 08/01/17 * Will need incentive spirometer at bedside post op * INR 1.1 * CXR: No active disease. No significant interval change compared to the prior examination(s) * F/U RLE MRI: 1. Prominent comminuted depressed intra-articular fracture of the lateral proximal tibial plateau with articular surface depression measuring up to 1.1 centimeters. Fracture line extension to the lateral cortex of the proximal tibia to the level of the metadiaphysis. Prominent cartilage loss involving the lateral proximal tibia at the level of the fracture site. 2. Large suprapatellar joint effusion. 3. Vertically-oriented increased signal seen within the anterior root and horn of the lateral meniscus extending to the superior articular surface best seen on series 5, images 9 and 10 suggestive for a tear. 4. Some fraying with increased signal seen within the distal attachment of the fibular collateral ligament as well as the biceps femoris tendon attachment best seen on series 7, image 9 as well as series 3 images 18 and 19 suggestive for high grade strains and or partial tearing which raises the concern for possible posterior-lateral corner injury. Fluid and edema at the level of the posterior lateral corner. 5. Status post anterior cruciate ligament graft repair. Some thinning and fraying with increased signal seen at the distal attachment of the graft best seen on series 5, image 12 suggestive for a moderate grade sprain and or mild partial tearing. Majority of the tendon strand fibers appear preserved on the coronal sequences. 6. Low-grade sprain of the proximal attachment of the posterior cruciate ligament. 7. Linear grade 1 intrasubstance degeneration in the posterior horn of the medial meniscus. 8. Prominent thickening and fluid surrounding the lateral patellar retinaculum suggestive for high grade strain and or partial tearing. * Patient may need 2nd surgery for ACL repair * EKG: possible mild LVH, otherwise NSR and WNL * Blood type: A+ * Ab screen: negative Dilaudid 2 mg Q3H PRN severe pain Percocet PO Q6 PRN moderate pain Gabapentin 300 PO TID Toradol 30 IV Q6 Flexeril 5 TID Discontinued Morphine 4mg IVP Q4H PRN severe pain Zofran 4mg IVP Q6 PRN nausea/vomiting Fever Leukocytosis likely 2/2 recent surgery f/u Blood cultures and Urine culture and stain CXR: no disease Constipation Colace 100mg PO BID History of Herniated discs vicodin 5-300mg discontinued because of addition of percocet History of hyperthyroidism Last TSH on 06/22/17 was 0.47 - WNL History of SLE Patient used to take plaquinil but it gave her migraines and tinnitus She and her doctor decided to stop it History of brain colloid cyst First diagnosed 2010 Patient follows up outpatient with Dr. Max and gets an MRI every 3 years History of gastritis Protonix 40mg PO daily Prophylaxis Heparin 5000U SC Q8 Protonix 40mg PO daily <Helder Krueger H - Last Filed: 08/04/17 11:01> Objective - Vital Signs/Intake and Output Vital Signs (last 24 hours): Temp Pulse Resp BP Pulse Ox 98.6 F 87 20 118/79 97 08/04/17 07:40 08/04/17 07:40 08/04/17 07:40 08/04/17 07:40 08/04/17 07:40 Intake and Output: 08/04/17 08/04/17 06:59 18:59 Intake Total 450 Balance 450 - Medications Medications: Current Medications Aspirin (Aspirin) 325 mg PO DAILY [facility] Last Admin: 08/04/17 10:27 Dose: 325 mg Cyclobenzaprine HCl (Flexeril) 5 mg PO QPM [facility] Docusate Sodium (Colace) 100 mg PO BID [facility] Last Admin: 08/04/17 10:27 Dose: 100 mg Gabapentin (Neurontin) 300 mg PO TID [facility] Last Admin: 08/04/17 10:26 Dose: 300 mg Heparin Sodium (Porcine) (Heparin) 5,000 units SC Q8 [facility] Last Admin: 07/31/17 21:54 Dose: 5,000 units Hydromorphone HCl (Dilaudid) 2 mg IVP Q3H PRN PRN Reason: Pain, severe (8-10) Last Admin: 08/04/17 08:03 Dose: 2 mg Cefazolin Sodium/Dextrose (Ancef Iv 1 Gm Duplex) 1 gm in 50 mls @ 100 mls/hr IVPB Q8H [facility] Last Admin: 08/04/17 10:34 Dose: 100 mls/hr Ketorolac Tromethamine (Toradol) 30 mg IVP Q6 PRN PRN Reason: Pain, moderate (4-7) Last Admin: 08/04/17 06:24 Dose: 30 mg Ondansetron HCl (Zofran Inj) 4 mg IVP Q6 PRN PRN Reason: Nausea/Vomiting Last Admin: 08/03/17 09:32 Dose: 4 mg Oxycodone/Acetaminophen (Percocet 5/325 Mg Tab) 1 tab PO Q4H PRN PRN Reason: Pain, moderate (4-7) Stop: 08/05/17 10:14 Last Admin: 08/03/17 09:16 Dose: 1 tab Pantoprazole Sodium (Protonix Ec Tab) 40 mg PO DAILY [facility] Last Admin: 08/04/17 10:27 Dose: 40 mg - Labs Labs: 08/04/17 06:32 08/04/17 06:32 PT 12.6 SECONDS (9.7-12.2) H 08/01/17 06:47 INR 1.1 08/01/17 06:47 APTT 32 SECONDS (21-34) 08/01/17 06:47 Attending/Attestation - Attestation I have personally seen and examined this patient.: Yes I have fully participated in the care of the patient.: Yes I have reviewed all pertinent clinical information, including history, physical exam and plan: Yes Notes (Text): Medical attending: Patient was seen and examined by me. She reported sleeping very well last night, after I had been notified by her PMD that she was on gabapentin as well as flexeril - we added these and she reported a lot of relief. Per my discussion with case workers we are still waiting on approval of her going to rehab. In the mean time we encouraged patient to be out of bed. She was able to participate with PT while on crutuces and got as far as the elevator. WBC ok, no more fevers. The blood and urine is ok as well. thank you Helder Krueger
[2017-08-04] MEDS: Pantoprazole 40 mg EC Tab PO SCH (10:27)
[2017-08-04] MEDS: Oxycodone/Acetaminophen 5/325 mg Tab PO PRN ×2 (11:32→17:10)
--- NOTE | 2017-08-04 12:16 | CP.PCM.PN ---
Subjective - Date & Time of Evaluation Date of Evaluation: 08/04/17 Time of Evaluation: 12:10 - Subjective Subjective: S- pt with post op incisional discomfort pt markedly improved encounter accomplished at bedside Objective - Vital Signs/Intake and Output Vital Signs (last 24 hours): Temp Pulse Resp BP Pulse Ox 98.6 F 87 20 118/79 97 08/04/17 07:40 08/04/17 07:40 08/04/17 07:40 08/04/17 07:40 08/04/17 07:40 Intake and Output: 08/04/17 08/04/17 06:59 18:59 Intake Total 450 Balance 450 - Medications Medications: Current Medications Aspirin (Aspirin) 325 mg PO DAILY [facility] Last Admin: 08/04/17 10:27 Dose: 325 mg Cyclobenzaprine HCl (Flexeril) 5 mg PO QPM [facility] Docusate Sodium (Colace) 100 mg PO BID [facility] Last Admin: 08/04/17 10:27 Dose: 100 mg Gabapentin (Neurontin) 300 mg PO TID [facility] Last Admin: 08/04/17 10:26 Dose: 300 mg Heparin Sodium (Porcine) (Heparin) 5,000 units SC Q8 [facility] Last Admin: 07/31/17 21:54 Dose: 5,000 units Hydromorphone HCl (Dilaudid) 2 mg IVP Q3H PRN PRN Reason: Pain, severe (8-10) Last Admin: 08/04/17 08:03 Dose: 2 mg Cefazolin Sodium/Dextrose (Ancef Iv 1 Gm Duplex) 1 gm in 50 mls @ 100 mls/hr IVPB Q8H [facility] Last Admin: 08/04/17 10:34 Dose: 100 mls/hr Ketorolac Tromethamine (Toradol) 30 mg IVP Q6 PRN PRN Reason: Pain, moderate (4-7) Last Admin: 08/04/17 06:24 Dose: 30 mg Ondansetron HCl (Zofran Inj) 4 mg IVP Q6 PRN PRN Reason: Nausea/Vomiting Last Admin: 08/03/17 09:32 Dose: 4 mg Oxycodone/Acetaminophen (Percocet 5/325 Mg Tab) 1 tab PO Q4H PRN PRN Reason: Pain, moderate (4-7) Stop: 08/05/17 10:14 Last Admin: 08/04/17 11:32 Dose: 1 tab Pantoprazole Sodium (Protonix Ec Tab) 40 mg PO DAILY [facility] Last Admin: 08/04/17 10:27 Dose: 40 mg - Labs Labs: 08/04/17 06:32 08/04/17 06:32 PT 12.6 SECONDS (9.7-12.2) H 08/01/17 06:47 INR 1.1 08/01/17 06:47 APTT 32 SECONDS (21-34) 08/01/17 06:47 - Skin Additional comments: Objective systemic- as p[er DR Krueger Musculoskeltal stance/gait- defrred R lower ext dry and inatct orthopedically stable Assessment and Plan - Assessment and Plan (Free Text) Assessment: A- s/p ORIF tibial plateau fx orthopedically stable P- physio
[2017-08-05 00:53] VITALS: RESP 20
[2017-08-05] MEDS: ceFAZolin IV 1 gm in Dextrose 1 GM/50 ML BAG IVPB SCH ×3 (01:24→17:28)
--- NOTE | 2017-08-05 03:29 | CP.PCM.PN ---
<LokimyaTiffanydaniele - Last Filed: 08/05/17 03:26> Subjective - Date & Time of Evaluation Date of Evaluation: 08/05/17 Time of Evaluation: 03:26 - Subjective Subjective: Patient has been seen and examined. Complained of sharpshooting right Lower ext pain that woke her out of her sleep. She was given PRN Toradol and then dilauded but stated the pain was still a 7/10 although reduced. Denies any fever , chest pain, sob, abdominal pain, n/v, or loss of sensation. Objective - Vital Signs/Intake and Output Vital Signs (last 24 hours): Temp Pulse Resp BP Pulse Ox 98.1 F 79 20 114/74 99 08/04/17 23:05 08/04/17 23:05 08/04/17 23:05 08/04/17 23:05 08/04/17 23:05 Intake and Output: 08/04/17 08/05/17 18:59 06:59 Intake Total 240 Output Total 0 Balance 240 - Medications Medications: Current Medications Aspirin (Aspirin) 325 mg PO DAILY [facility] Last Admin: 08/04/17 10:27 Dose: 325 mg Cyclobenzaprine HCl (Flexeril) 5 mg PO QPM [facility] Last Admin: 08/04/17 17:12 Dose: 5 mg Docusate Sodium (Colace) 100 mg PO BID [facility] Last Admin: 08/04/17 17:11 Dose: 100 mg Gabapentin (Neurontin) 300 mg PO TID [facility] Last Admin: 08/04/17 17:10 Dose: 300 mg Heparin Sodium (Porcine) (Heparin) 5,000 units SC Q8 [facility] Last Admin: 08/04/17 21:16 Dose: 5,000 units Hydromorphone HCl (Dilaudid) 2 mg IVP Q3H PRN PRN Reason: Pain, severe (8-10) Last Admin: 08/05/17 00:25 Dose: 2 mg Cefazolin Sodium/Dextrose (Ancef Iv 1 Gm Duplex) 1 gm in 50 mls @ 100 mls/hr IVPB Q8H [facility] Last Admin: 08/05/17 01:24 Dose: 100 mls/hr Ketorolac Tromethamine (Toradol) 30 mg IVP Q6 PRN PRN Reason: Pain, moderate (4-7) Last Admin: 08/04/17 23:40 Dose: 30 mg Ondansetron HCl (Zofran Inj) 4 mg IVP Q6 PRN PRN Reason: Nausea/Vomiting Last Admin: 08/03/17 09:32 Dose: 4 mg Oxycodone/Acetaminophen (Percocet 5/325 Mg Tab) 1 tab PO Q4H PRN PRN Reason: Pain, moderate (4-7) Stop: 08/05/17 10:14 Last Admin: 08/04/17 17:10 Dose: 1 tab Pantoprazole Sodium (Protonix Ec Tab) 40 mg PO DAILY [facility] Last Admin: 08/04/17 10:27 Dose: 40 mg - Labs Labs: 08/04/17 06:32 08/04/17 06:32 PT 12.6 SECONDS (9.7-12.2) H 08/01/17 06:47 INR 1.1 08/01/17 06:47 APTT 32 SECONDS (21-34) 08/01/17 06:47 - Additional Findings Additional findings: - Constitutional Appears: Non-toxic, No Acute Distress - Head Exam Head Exam: NORMAL INSPECTION - Eye Exam Eye Exam: EOMI - ENT Exam ENT Exam: Mucous Membranes Moist - Respiratory Exam Respiratory Exam: Clear to Auscultation Bilateral, NORMAL BREATHING PATTERN. absent: Rales, Rhonchi, Wheezes - Cardiovascular Exam Cardiovascular Exam: REGULAR RHYTHM, +S1, +S2. absent: Gallop, Irregular Rhythm , Rubs, Systolic Murmur - GI/Abdominal Exam GI & Abdominal Exam: Normal Bowel Sounds, Soft. absent: Distended, Firm, Guarding, Rigid, Tenderness - Extremities Exam Extremities exam: Positive for: pedal pulses present. Negative for: pedal edema Additional comments: Full ROM in toes right LE in bandage and brace - Neurological Exam Neurological exam: Alert, Oriented x3 Additional comments: no sensory deficit in toes - Psychiatric Exam Psychiatric exam: Normal Affect, Normal Mood - Skin Skin Exam: Dry, Normal Color Assessment and Plan - Assessment and Plan (Free Text) Plan: Right Tibial Fracture Right Knee X Ray 07/30/17 - acute depressed complete nondisplaced fracture of the lateral tibial plateau with associated hemarthrosis (please see full report) Right Knee CT 07/30/17 - complex comminuted intra-articular fracture deformity seen through the lateral proximal tibial plateau with approximately 1.1cm articular surface depression of the proximal tibia. Fracture extension to the lateral and posterior cortices. Patient status post ACL graft repair. Lucency noted adjacent to the proximal tibial screw which may represent some screw loosening. Large suprapatellar joint effusion with hemarthrosis. Some heterogeneity and a suggestion of a fat containing foci seen lateral to proximal tibia (please see full report) Ortho consult - Dr. Hernandez - help appreciated * Surgery for fracture on 08/01/17 * Will need incentive spirometer at bedside post op * INR 1.1 * CXR: No active disease. No significant interval change compared to the prior examination(s) * F/U RLE MRI: 1. Prominent comminuted depressed intra-articular fracture of the lateral proximal tibial plateau with articular surface depression measuring up to 1.1 centimeters. Fracture line extension to the lateral cortex of the proximal tibia to the level of the metadiaphysis. Prominent cartilage loss involving the lateral proximal tibia at the level of the fracture site. 2. Large suprapatellar joint effusion. 3. Vertically-oriented increased signal seen within the anterior root and horn of the lateral meniscus extending to the superior articular surface best seen on series 5, images 9 and 10 suggestive for a tear. 4. Some fraying with increased signal seen within the distal attachment of the fibular collateral ligament as well as the biceps femoris tendon attachment best seen on series 7, image 9 as well as series 3 images 18 and 19 suggestive for high grade strains and or partial tearing which raises the concern for possible posterior-lateral corner injury. Fluid and edema at the level of the posterior lateral corner. 5. Status post anterior cruciate ligament graft repair. Some thinning and fraying with increased signal seen at the distal attachment of the graft best seen on series 5, image 12 suggestive for a moderate grade sprain and or mild partial tearing. Majority of the tendon strand fibers appear preserved on the coronal sequences. 6. Low-grade sprain of the proximal attachment of the posterior cruciate ligament. 7. Linear grade 1 intrasubstance degeneration in the posterior horn of the medial meniscus. 8. Prominent thickening and fluid surrounding the lateral patellar retinaculum suggestive for high grade strain and or partial tearing. * Patient may need 2nd surgery for ACL repair * EKG: possible mild LVH, otherwise NSR and WNL * Blood type: A+ * Ab screen: negative Dilaudid 2 mg Q3H PRN severe pain Percocet PO Q6 PRN moderate pain Gabapentin 300 PO TID Toradol 30 IV Q6 Flexeril 5 TID Zofran 4mg IVP Q6 PRN nausea/vomiting 1 dose of Benedryl overnight w/ leg elevation to help with comfort and sleep. Fever Leukocytosis likely 2/2 recent surgery f/u Blood cultures and Urine culture and stain CXR: no disease Constipation Colace 100mg PO BID History of Herniated discs vicodin 5-300mg discontinued because of addition of percocet History of hyperthyroidism Last TSH on 06/22/17 was 0.47 - WNL History of SLE Patient used to take plaquinil but it gave her migraines and tinnitus She and her doctor decided to stop it History of brain colloid cyst First diagnosed 2010 Patient follows up outpatient with Dr. Max and gets an MRI every 3 years History of gastritis Protonix 40mg PO daily Prophylaxis Heparin 5000U SC Q8 Protonix 40mg PO daily Disposition: Patient will be discharged to [facility] likely Sunday (08/06). Continue current pain management and PT for now. Sharyn Combs PGY-1 <Helder Krueger H - Last Filed: 08/05/17 09:25> Objective - Vital Signs/Intake and Output Vital Signs (last 24 hours): Temp Pulse Resp BP Pulse Ox 97.8 F 81 20 125/75 97 08/05/17 07:25 08/05/17 07:25 08/05/17 07:25 08/05/17 07:25 08/05/17 07:25 Intake and Output: 08/05/17 08/05/17 06:59 18:59 Output Total 700 Balance -700 - Medications Medications: Current Medications Aspirin (Aspirin) 325 mg PO DAILY [facility] Last Admin: 08/04/17 10:27 Dose: 325 mg Cyclobenzaprine HCl (Flexeril) 5 mg PO QPM [facility] Last Admin: 08/04/17 17:12 Dose: 5 mg Docusate Sodium (Colace) 100 mg PO BID [facility] Last Admin: 08/04/17 17:11 Dose: 100 mg Gabapentin (Neurontin) 300 mg PO TID [facility] Last Admin: 08/04/17 17:10 Dose: 300 mg Heparin Sodium (Porcine) (Heparin) 5,000 units SC Q8 [facility] Last Admin: 08/05/17 06:22 Dose: 5,000 units Hydromorphone HCl (Dilaudid) 2 mg IVP Q3H PRN PRN Reason: Pain, severe (8-10) Last Admin: 08/05/17 06:27 Dose: 2 mg Cefazolin Sodium/Dextrose (Ancef Iv 1 Gm Duplex) 1 gm in 50 mls @ 100 mls/hr IVPB Q8H [facility] Last Admin: 08/05/17 01:24 Dose: 100 mls/hr Ketorolac Tromethamine (Toradol) 30 mg IVP Q6 PRN PRN Reason: Pain, moderate (4-7) Last Admin: 08/04/17 23:40 Dose: 30 mg Ondansetron HCl (Zofran Inj) 4 mg IVP Q6 PRN PRN Reason: Nausea/Vomiting Last Admin: 08/03/17 09:32 Dose: 4 mg Oxycodone/Acetaminophen (Percocet 5/325 Mg Tab) 1 tab PO Q4H PRN PRN Reason: Pain, moderate (4-7) Stop: 08/05/17 10:14 Last Admin: 08/05/17 04:58 Dose: 1 tab Pantoprazole Sodium (Protonix Ec Tab) 40 mg PO DAILY [facility] Last Admin: 08/04/17 10:27 Dose: 40 mg - Labs Labs: 08/05/17 07:35 08/05/17 07:35 PT 12.6 SECONDS (9.7-12.2) H 08/01/17 06:47 INR 1.1 08/01/17 06:47 APTT 32 SECONDS (21-34) 08/01/17 06:47 Attending/Attestation - Attestation I have personally seen and examined this patient.: Yes I have fully participated in the care of the patient.: Yes I have reviewed all pertinent clinical information, including history, physical exam and plan: Yes Notes (Text): 08/05/17 09:24 Medical attending: Patient was seen and examined by me, agrees the above note by medical recruiter. I came I saw the patient. She was moved to a different room. She explained to me that her neighbor was causing her a lot of trouble overnight. She did have pain on the right knee area particularly at night. She doesn't have pain in her right ankle at this time. She tells me she is able to move very far with the help of the crutches whenever PT comes to see her. Per my discussion with caseworkers yesterday we are still waiting on approval before the patient goes somewhere hopefully by this Sunday Thank you very much, Helder Krueger
[2017-08-05] MEDS: Oxycodone/Acetaminophen 5/325 mg Tab PO PRN (04:58)
[2017-08-05 07:44] LABS: BASO % 0.5 % (0.0-2.0); EOS # 0.3 K/uL (0.0-0.7); EOS % 3.8 % (0.0-4.0); HEMATOCRIT 32.6 % (34.0-47.0); LYMPH # 1.6 K/uL (1.0-4.3); LYMPH % 23.9 % (20.0-40.0); MEAN CELL VOLUME 86.3 fL (81.0-99.0); MEAN CORPUSCULAR HEMOGLOBIN 28.8 pg (27.0-31.0); MEAN CORPUSCULAR HGB CONC 33.3 g/dL (33.0-37.0); MEAN PLATELET VOLUME 7.8 fL (7.2-11.7); MONO # 0.5 K/uL (0.0-0.8); MONO % 8.1 % (0.0-10.0); RED CELL DISTRIBUTION WIDTH 12.9 % (11.5-14.5); WHITE BLOOD COUNT 6.8 K/uL (4.8-10.8)
[2017-08-05 08:04] LABS: ALB/GLOB RATIO 1.2 (1.0-2.1); ALKALINE PHOSPHATASE 58 U/L (38-126); ALT/SGPT 27 U/L (9-52); AST/SGOT 25 U/L (14-36); BILIRUBIN,TOTAL 1.1 mg/dL (0.2-1.3); BLOOD UREA NITROGEN 13 mg/dL (7-17); CALCIUM 8.3 mg/dl (8.6-10.4); CARBON DIOXIDE 26 mmol/L (22-30); CHLORIDE 97 mmol/L (98-107); GFR AFRICAN-AMERICAN > 60; GLUCOSE,RANDOM 84 mg/dL (65-105); MAGNESIUM 1.8 mg/dL (1.6-2.3); PHOSPHOROUS 4.2 mg/dL (2.5-4.5); POTASSIUM 3.9 mmol/L (3.6-5.2); SODIUM 132 mmol/L (132-148); TOTAL PROTEIN 6.6 g/dL (6.3-8.3)
[2017-08-05] MEDS: Pantoprazole 40 mg EC Tab PO SCH (09:41)
--- NOTE | 2017-08-05 12:44 | CP.PCM.PN ---
Subjective - Date & Time of Evaluation Date of Evaluation: 08/05/17 Time of Evaluation: 12:30 - Subjective Subjective: S: pt markedly improved; still with some post op incisional discomfort Objective - Vital Signs/Intake and Output Vital Signs (last 24 hours): Temp Pulse Resp BP Pulse Ox 97.8 F 81 20 125/75 97 08/05/17 07:25 08/05/17 07:25 08/05/17 07:25 08/05/17 07:25 08/05/17 07:25 Intake and Output: 08/05/17 08/05/17 06:59 18:59 Output Total 700 Balance -700 - Medications Medications: Current Medications Aspirin (Aspirin) 325 mg PO DAILY [facility] Last Admin: 08/05/17 09:41 Dose: 325 mg Cyclobenzaprine HCl (Flexeril) 5 mg PO QPM [facility] Last Admin: 08/04/17 17:12 Dose: 5 mg Docusate Sodium (Colace) 100 mg PO BID [facility] Last Admin: 08/05/17 09:41 Dose: 100 mg Gabapentin (Neurontin) 300 mg PO TID [facility] Last Admin: 08/05/17 09:41 Dose: 300 mg Heparin Sodium (Porcine) (Heparin) 5,000 units SC Q8 [facility] Last Admin: 08/05/17 06:22 Dose: 5,000 units Hydromorphone HCl (Dilaudid) 2 mg IVP Q3H PRN PRN Reason: Pain, severe (8-10) Last Admin: 08/05/17 09:40 Dose: 2 mg Cefazolin Sodium/Dextrose (Ancef Iv 1 Gm Duplex) 1 gm in 50 mls @ 100 mls/hr IVPB Q8H [facility] Last Admin: 08/05/17 11:00 Dose: 100 mls/hr Ketorolac Tromethamine (Toradol) 30 mg IVP Q6 PRN PRN Reason: Pain, moderate (4-7) Last Admin: 08/05/17 12:36 Dose: 30 mg Ondansetron HCl (Zofran Inj) 4 mg IVP Q6 PRN PRN Reason: Nausea/Vomiting Last Admin: 08/03/17 09:32 Dose: 4 mg Pantoprazole Sodium (Protonix Ec Tab) 40 mg PO DAILY [facility] Last Admin: 08/05/17 09:41 Dose: 40 mg - Labs Labs: 08/05/17 07:35 08/05/17 07:35 PT 12.6 SECONDS (9.7-12.2) H 08/01/17 06:47 INR 1.1 08/01/17 06:47 APTT 32 SECONDS (21-34) 08/01/17 06:47 - Skin Additional comments: Obj systemic- wnl Musculoskeltal: stance/ gait- defrred R knee wound benign N/V intact no gross progressive neuor deficits no calf pain/no [place] Assessment and Plan - Assessment and Plan (Free Text) Assessment: A- s/p ORF layteral tibial plateau fx and repair lateral meniscus Plan: P physio;toe touch weigth bearing to continue orthopedically stable for transfer to rehab
[2017-08-06] MEDS: ceFAZolin IV 1 gm in Dextrose 1 GM/50 ML BAG IVPB SCH (02:01)
[2017-08-06 07:22] LABS: BASO % 0.5 % (0.0-2.0); EOS # 0.2 K/uL (0.0-0.7); EOS % 3.5 % (0.0-4.0); HEMATOCRIT 33.3 % (34.0-47.0); LYMPH % 30.5 % (20.0-40.0); MEAN CORPUSCULAR HEMOGLOBIN 29.2 pg (27.0-31.0); MEAN CORPUSCULAR HGB CONC 34.4 g/dL (33.0-37.0); MEAN PLATELET VOLUME 7.7 fL (7.2-11.7); MONO # 0.5 K/uL (0.0-0.8); MONO % 7.9 % (0.0-10.0); NRBC % 0.1 % (0.0-2.0); RED CELL DISTRIBUTION WIDTH 12.7 % (11.5-14.5); WHITE BLOOD COUNT 6.5 K/uL (4.8-10.8)
[2017-08-06 07:55] LABS: ALB/GLOB RATIO 1.2 (1.0-2.1); ALKALINE PHOSPHATASE 65 U/L (38-126); ALT/SGPT 36 U/L (9-52); AST/SGOT 28 U/L (14-36); BLOOD UREA NITROGEN 8 mg/dL (7-17); CALCIUM 8.8 mg/dl (8.6-10.4); CARBON DIOXIDE 27 mmol/L (22-30); CHLORIDE 98 mmol/L (98-107); GFR AFRICAN-AMERICAN > 60; GLUCOSE,RANDOM 78 mg/dL (65-105); MAGNESIUM 1.9 mg/dL (1.6-2.3); PHOSPHOROUS 4.2 mg/dL (2.5-4.5); POTASSIUM 4.1 mmol/L (3.6-5.2); SODIUM 133 mmol/L (132-148); TOTAL PROTEIN 6.9 g/dL (6.3-8.3)
--- NOTE | 2017-08-06 08:45 | CP.PCM.PN ---
Subjective - Date & Time of Evaluation Date of Evaluation: 08/06/17 Time of Evaluation: 08:44 Objective - Vital Signs/Intake and Output Vital Signs (last 24 hours): Temp Pulse Resp BP Pulse Ox 98.6 F 96 H 20 114/75 95 08/06/17 08:09 08/06/17 08:09 08/06/17 08:09 08/06/17 08:09 08/06/17 08:09 - Medications Medications: Current Medications Aspirin (Aspirin) 325 mg PO DAILY [facility] Last Admin: 08/05/17 09:41 Dose: 325 mg Cyclobenzaprine HCl (Flexeril) 5 mg PO QPM [facility] Last Admin: 08/05/17 20:01 Dose: 5 mg Docusate Sodium (Colace) 100 mg PO BID [facility] Last Admin: 08/05/17 17:26 Dose: Not Given Gabapentin (Neurontin) 300 mg PO TID [facility] Last Admin: 08/05/17 17:26 Dose: 300 mg Heparin Sodium (Porcine) (Heparin) 5,000 units SC Q8 [facility] Last Admin: 08/06/17 06:31 Dose: 5,000 units Hydromorphone HCl (Dilaudid) 2 mg IVP Q3H PRN PRN Reason: Pain, severe (8-10) Last Admin: 08/06/17 06:35 Dose: 2 mg Cefazolin Sodium/Dextrose (Ancef Iv 1 Gm Duplex) 1 gm in 50 mls @ 100 mls/hr IVPB Q8H [facility] Last Admin: 08/06/17 02:01 Dose: 100 mls/hr Ketorolac Tromethamine (Toradol) 30 mg IVP Q6 PRN PRN Reason: Pain, moderate (4-7) Last Admin: 08/06/17 02:04 Dose: 30 mg Ondansetron HCl (Zofran Inj) 4 mg IVP Q6 PRN PRN Reason: Nausea/Vomiting Last Admin: 08/05/17 18:56 Dose: 4 mg Pantoprazole Sodium (Protonix Ec Tab) 40 mg PO DAILY [facility] Last Admin: 08/05/17 09:41 Dose: 40 mg - Labs Labs: 08/06/17 06:59 08/06/17 06:59 PT 12.6 SECONDS (9.7-12.2) H 08/01/17 06:47 INR 1.1 08/01/17 06:47 APTT 32 SECONDS (21-34) 08/01/17 06:47
[2017-08-06] MEDS: Pantoprazole 40 mg EC Tab PO SCH (09:38)
--- NOTE | 2017-08-06 13:43 | CP.PCM.PN ---
Subjective - Date & Time of Evaluation Date of Evaluation: 08/06/17 Time of Evaluation: 13:40 - Subjective Subjective: Patient says pain is controlled, denies CP/SOb tolerating ambulation Objective - Vital Signs/Intake and Output Vital Signs (last 24 hours): Temp Pulse Resp BP Pulse Ox 98.6 F 96 H 20 114/75 95 08/06/17 08:09 08/06/17 08:09 08/06/17 08:09 08/06/17 08:09 08/06/17 08:09 - Medications Medications: Current Medications Aspirin (Aspirin) 325 mg PO DAILY [facility] Last Admin: 08/06/17 09:39 Dose: 325 mg Cephalexin Monohydrate (Keflex) 500 mg PO BID [facility] Stop: 08/10/17 18:00 Cyclobenzaprine HCl (Flexeril) 5 mg PO HS [facility] Docusate Sodium (Colace) 100 mg PO BID [facility] Last Admin: 08/06/17 09:39 Dose: 100 mg Gabapentin (Neurontin) 300 mg PO TID [facility] Last Admin: 08/06/17 09:39 Dose: 300 mg Heparin Sodium (Porcine) (Heparin) 5,000 units SC Q8 [facility] Last Admin: 08/06/17 06:31 Dose: 5,000 units Hydromorphone HCl (Dilaudid) 2 mg IVP Q3H PRN PRN Reason: Pain, severe (8-10) Last Admin: 08/06/17 09:40 Dose: 2 mg Ketorolac Tromethamine (Toradol) 30 mg IVP Q6 PRN PRN Reason: Pain, moderate (4-7) Last Admin: 08/06/17 12:19 Dose: 30 mg Ondansetron HCl (Zofran Inj) 4 mg IVP Q6 PRN PRN Reason: Nausea/Vomiting Last Admin: 08/05/17 18:56 Dose: 4 mg Pantoprazole Sodium (Protonix Ec Tab) 40 mg PO DAILY [facility] Last Admin: 08/06/17 09:38 Dose: 40 mg - Labs Labs: 08/06/17 06:59 08/06/17 06:59 PT 12.6 SECONDS (9.7-12.2) H 08/01/17 06:47 INR 1.1 08/01/17 06:47 APTT 32 SECONDS (21-34) 08/01/17 06:47 - Extremities Exam Additional comments: Dressing changed. incision intact, no erythema, dry. +ROM ankle/toes, sensation intact, +DP/PT pulses calves soft NT neg homans Assessment and Plan (1) Tibial plateau fracture, right Assessment & Plan: POD#5 s/p right tibial plat ORIF, posterior lat corner ortho stable for transfer to TCU cont PT/OOB VTE proph d/w Dr. Hernandez, agrees with above Status: Acute
--- NOTE | 2017-08-06 13:58 | CP.PCM.DIS ---
Provider - Provider Date of Admission: 07/30/17 16:01 Attending physician: Helder Krueger DO Primary care physician: Dr. Garcias Consults: Dr. Hernandez- Orthopedic surgery Time Spent in preparation of Discharge (in minutes): 45 Hospital Course - Lab Results Lab Results: Micro Results 08/02/17 06:15 Blood-Venous Blood Culture - Preliminary NO GROWTH AFTER 4 DAYS 08/02/17 05:45 Blood-Venous Blood Culture - Preliminary NO GROWTH AFTER 4 DAYS 08/02/17 04:23 Urine,Clean Catch Urine Culture - Final No Growth (<1,000 CFU/ML) Most Recent Lab Values WBC 6.5 K/uL (4.8-10.8) 08/06/17 06:59 RBC 3.92 Mil/uL (3.80-5.20) 08/06/17 06:59 Hgb 11.5 g/dL (11.0-16.0) 08/06/17 06:59 Hct 33.3 % (34.0-47.0) L 08/06/17 06:59 MCV 85.0 fL (81.0-99.0) 08/06/17 06:59 MCH 29.2 pg (27.0-31.0) 08/06/17 06:59 MCHC 34.4 g/dL (33.0-37.0) 08/06/17 06:59 RDW 12.7 % (11.5-14.5) 08/06/17 06:59 Plt Count 289 K/uL (130-400) 08/06/17 06:59 MPV 7.7 fL (7.2-11.7) 08/06/17 06:59 Neut % (Auto) 57.6 % (50.0-75.0) 08/06/17 06:59 Lymph % (Auto) 30.5 % (20.0-40.0) 08/06/17 06:59 [place] % (Auto) 7.9 % (0.0-10.0) 08/06/17 06:59 Eos % (Auto) 3.5 % (0.0-4.0) 08/06/17 06:59 Baso % (Auto) 0.5 % (0.0-2.0) 08/06/17 06:59 Neut # 3.7 K/uL (1.8-7.0) 08/06/17 06:59 Lymph # 2.0 K/uL (1.0-4.3) 08/06/17 06:59 [place] # 0.5 K/uL (0.0-0.8) 08/06/17 06:59 Eos # 0.2 K/uL (0.0-0.7) 08/06/17 06:59 Baso # 0.0 K/uL (0.0-0.2) 08/06/17 06:59 Neutrophils % (Manual) 80 % (50-75) H 08/02/17 07:18 Band Neutrophils % 1 % (0-2) 08/02/17 07:18 Lymphocytes % (Manual) 12 % (20-40) L 08/02/17 07:18 Monocytes % (Manual) 7 % (0-10) 08/02/17 07:18 Platelet Estimate Normal (NORMAL) 08/02/17 07:18 RBC Morphology Normal 08/02/17 07:18 PT 12.6 SECONDS (9.7-12.2) H 08/01/17 06:47 INR 1.1 08/01/17 06:47 APTT 32 SECONDS (21-34) 08/01/17 06:47 Sodium 133 mmol/L (132-148) 08/06/17 06:59 Potassium 4.1 mmol/L (3.6-5.2) 08/06/17 06:59 Chloride 98 mmol/L (98-107) 08/06/17 06:59 Carbon Dioxide 27 mmol/L (22-30) 08/06/17 06:59 Anion Gap 13 (10-20) 08/06/17 06:59 BUN 8 mg/dL (7-17) 08/06/17 06:59 Creatinine 0.5 mg/dL (0.7-1.2) L 08/06/17 06:59 Est GFR ( Amer) > 60 08/06/17 06:59 Est GFR (Non-Af Amer) > 60 08/06/17 06:59 Random Glucose 78 mg/dL (65-105) 08/06/17 06:59 Calcium 8.8 mg/dl (8.6-10.4) 08/06/17 06:59 Phosphorus 4.2 mg/dL (2.5-4.5) 08/06/17 06:59 Magnesium 1.9 mg/dL (1.6-2.3) 08/06/17 06:59 Total Bilirubin 1.0 mg/dL (0.2-1.3) 08/06/17 06:59 AST 28 U/L (14-36) 08/06/17 06:59 ALT 36 U/L (9-52) 08/06/17 06:59 Alkaline Phosphatase 65 U/L (38-126) 08/06/17 06:59 Total Protein 6.9 g/dL (6.3-8.3) 08/06/17 06:59 Albumin 3.7 g/dL (3.5-5.0) 08/06/17 06:59 Globulin 3.2 gm/dL (2.2-3.9) 08/06/17 06:59 Albumin/Globulin Ratio 1.2 (1.0-2.1) 08/06/17 06:59 Urine Color Yellow (YELLOW) 08/01/17 06:52 Urine Clarity Clear (Clear) 08/01/17 06:52 Urine pH 7.0 (5.0-8.0) 08/01/17 06:52 Ur Specific [place] 1.011 (1.003-1.030) 08/01/17 06:52 Urine Protein Negative mg/dL (NEGATIVE) 08/01/17 06:52 Urine Glucose (UA) Normal mg/dL (Normal) 08/01/17 06:52 Urine Ketones Negative mg/dL (NEGATIVE) 08/01/17 06:52 Urine Blood 1+ (NEGATIVE) H 08/01/17 06:52 Urine Nitrate Negative (NEGATIVE) 08/01/17 06:52 Urine Bilirubin Negative (NEGATIVE) 08/01/17 06:52 Urine Urobilinogen Normal mg/dL (0.2-1.0) 08/01/17 06:52 Ur Leukocyte Esterase Trace Lacy/uL (Negative) 08/01/17 06:52 Urine WBC (Auto) 5 /hpf (0-5) 08/01/17 06:52 Urine RBC (Auto) 4 /hpf (0-3) H 08/01/17 06:52 Ur Squamous Epith Cells 2 /hpf (0-5) 08/01/17 06:52 Urine HCG, Qual Negative (NEGATIVE) 08/01/17 03:52 Blood Type A POSITIVE 07/31/17 14:09 Antibody Screen Negative 07/31/17 14:09 - Hospital Course Hospital Course: CC: " My knee hurts!" HPI: Patient is a 37 year old female with PMHx of SLE, pericarditis in 2013, colloid brain cyst, L4-5 herniated disc, L5-S1 fissure tear in disc, hyperthyroidism, eczema, rheumatoid arthritis and gastritis with ulcer presenting for severe right knee pain. Patient was working as a nurse in the [employer] when a [facility] [employer] [facility] [employer] patient seized and fell on this patient's right knee. Patient has had surgery on this knee 3 times , most recently by a Dr. Andrews, orthopedic surgeon. Patient says her pain was a 20/10 on arrival to ER. She says the Toradol did not help at all. Patient says that now her pain is an 8/10. She describes it as a cramping in her thigh and a throbbing, aching, grinding pain in her right knee. Patient says the pain radiates down to her ankle. Patient reports reproducible substernal chest pressure on arrival that resolved with a burp. Patient denies associated SOB or diaphoresis. Patient also reports having a cold since Sunday. Her PMD, Dr. Garcias, prescribed her an antibiotic but told her to only take it if it doesn' t get any better in the next few days. Patient also reports straining with her bowel movements ever since starting Vicodin for back pain. Patient denies fever , chills, abdominal pain, nausea, vomiting, diarrhea, recent travel, sick contacts. Patient reports getting nausea and vomiting from dilaudid. PMHx: as above PSHx: lap loree 2012, bilateral tubal ligation November 2013, Right Knee arthrtoscopy 2005, Right knee meniscectomy 2014, Right knee ACL tear 2015, Left knee arthroscopy 2005 Family Hx:Maternal grandmother - pacemaker; maternal grandfather - HTN, RA, stomach CA; Mother - SLE, maternal uncles - DM, paternal grandmother - DM Social Hx: quit tobacco 2007, smoked 5 cigarettes/ week x 10 years, drinks a 6 pack of herman 3 x per month, denies illicit drug use, lives with her boyfriend and 2 daughters, works as an [employer] 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 Patient was admitted for a tibial fracture. In the ED, right knee edema and a clicking sensation to the lateral aspect of the knee was appreciated during physical examination. Knee X-ray was ordered (07/30/17) and showed acute depressed complete nondisplaced fracture of the lateral tibial plateau with associated hemarthrosis. Lower extremity CT was ordered (07/30/17) and showed complex comminuted intra-articular fracture deformity seen through the lateral proximal tibial plateau with articular surface depression of the proximal tibia , with fracture extension to the lateral and posterior cortices. It was also noted that patient was status post ACL ligament graft repair, with some screw loosening and joint effusion. Orthopedics (Mary) was consulted for a tibial plateau fracture. Lower extremity MRI was ordered (08/01/17) and showed prominent comminuted depressed intra-articular fracture of lateral proximal tibial plateau with articular surface depression, and a fracture line extension to the lateral cortex of proximal tibia. Large suprapatellar joint effusion was also noted. Surgery was recommended. Chest x-ray performed pre-op (07/30/15) showed no active disease. EKG performed pre-op (08/01/17) showed normal sinus rhythm. Orthopedics performed an ORIF tibial fracture (08/01/17), post-op x- rays revealed acceptable position of construct. During her stay, the patient complained of ongoing knee pain post-op, as well as gastritis. Patient was given Flexeril, Neurontin, Dilaudid, and Toradol for pain. Anesthesiology ( Dashawn) was consulted for post-op pain management. On 08/02/17, the patietn developed a fever, was started on Ancef, and chest xray was orderd. Chest xray showed no focal infiltrate or effusion. When seen today (08/06/17), the patient was ambulating in the hospital hallway with the help of Physical Therapy and crutches. Patient appeared to be doing well, however, she still complained of pain in the right knee that radiates both proximally and distally from the knee. Ancef was discontinued and patient was started on Keflex PO. Patient will be transferred to TCU for continued care and physical therapy to help with her recovery. Patient is to continue all medications as prescribed. Patient should follow up with their PMD within one week of discharge. Patient should follow up with their orthopedic physician within one week of discharge. This is a brief summary of the patients hospital course. Please review EMR for complete record. Discharge Exam - Head Exam Head Exam: NORMAL INSPECTION - Eye Exam Eye Exam: EOMI, Normal appearance - ENT Exam ENT Exam: Mucous Membranes Moist - Neck Exam Neck exam: Full Rom - Respiratory Exam Respiratory Exam: Clear to PA & Lateral, NORMAL BREATHING PATTERN, UNREMARKABLE. absent: Rales, Rhonchi, Wheezes, Respiratory Distress - Cardiovascular Exam Cardiovascular Exam: REGULAR RHYTHM, +S1, +S2 - GI/Abdominal Exam GI & Abdominal Exam: Normal Bowel Sounds, Soft. absent: Distended, Firm, Guarding, Mass, Tenderness - Extremities Exam Extremities exam: pedal pulses present Additional comments: RLE tenderness and decreased ROM- s/p orthopedic surgery. Normal inspection of LLE. Dressing clean, dry intact; brace on RLE. - Neurological Exam Neurological exam: Alert, Oriented x3 - Psychiatric Exam Psychiatric exam: Normal Affect, Normal Mood - Skin Skin Exam: Dry, Intact, Normal Color, Warm Discharge Plan - Follow Up Plan Condition: IMPROVED Disposition: REHAB FACILITY/REHAB UNIT Instructions: ORIF of a Leg Fracture (DC), Pain Management After Surgery (DC), ORIF (DC) Additional Instructions: Patient is stable for discharge and transfer to TCU rehabilitation in [place], [place]. Patient must continue all medications. Patient should follow up with their PMD within 1 week of discharge. Referrals: Carlos Hernandez III, MD [Staff Provider] -
[2017-08-06 15:55] VITALS: BP 116/61; PULSE 83; TEMP 98.1; O2SAT 96
== END 2017-08-06 18:28 | DRG 489 ==
LOC: C.ER 09:57 → C.9E 16:01 → C.6T 16:57
PROVIDERS: ADMIT Internal Medicine; ATTEND Internal Medicine
PROC: 0MQN0ZZ Repair Right Knee Bursa and Ligament, Open Approach (ICD-10-PCS; 2017-08-01)
PROC: 0QUG0KZ Supplement Right Tibia with Nonautologous Tissue Substitute, Open Approach (ICD-10-PCS; 2017-08-01)
PROC: 0SQC0ZZ Repair Right Knee Joint, Open Approach (ICD-10-PCS; 2017-08-01)
PROC: 0QSG04Z Reposition Right Tibia with Internal Fixation Device, Open Approach (ICD-10-PCS; principal; 2017-08-01 08:30)
DX: S82.251A Displaced comminuted fracture of shaft of right tibia, initial encounter for closed fracture (principal); M32.9 Systemic lupus erythematosus, unspecified; W18.39XA Other fall on same level, initial encounter; M25.461 Effusion, right knee; M06.9 Rheumatoid arthritis, unspecified; F32.9 Major depressive disorder, single episode, unspecified; Z85.828 Personal history of other malignant neoplasm of skin; E05.90 Thyrotoxicosis, unspecified without thyrotoxic crisis or storm; Z90.49 Acquired absence of other specified parts of digestive tract; M51.27 Other intervertebral disc displacement, lumbosacral region; K59.00 Constipation, unspecified; R50.82 Postprocedural fever